=== PATIENT | male | born 1995 | race Caucasian/White ===

== ENCOUNTER 2022-01-29 11:26 | Outpatient (REF) | payer OTHER, SELFPAY ==
[2022-01-29 13:49] LABS: MANUAL DIFF FLAG NO
[2022-01-29 13:55] LABS: Basophils Absolute Auto 0.1 X10*3/uL (0.0-0.2); Basophils Percent Auto 1.2 % (0-2); Eosinophils Absolute Auto 0.2 X10*3/uL (0.0-0.4); Eosinophils Percent Auto 2.2 % (0-4); Hematocrit 46.4 % (42.0-52.0); Hemoglobin 15.9 g/dl (14.0-18.0); Imm Gran Abs Auto 0.11 X10*3/uL (0.00-0.03); Imm Gran Pct Auto 1.6 % (0.0-0.4); Lymphocytes Absolute Auto 2.6 X10*3/uL (1.2-4.9); Lymphocytes Percent Auto 37.6 % (20-40); Mean Corpuscular HGB Conc 34.3 g/dl (31.0-36.0); Mean Corpuscular Hemoglobin 28.3 pg (27.0-33.0); Mean Corpuscular Volume 82.6 fL (80.0-98.0); Mean Platelet Volume 10.1 fL (9.4-12.4); Monocytes Absolute Auto 0.9 X10*3/uL (0.1-1.2); Monocytes Percent Auto 12.8 % (2-11); Neutrophils Percent Auto 44.6 % (45-73); Platelet Count 228 X10*3/uL (160-400); Red Blood Count 5.62 X10*6/uL (4.60-5.80); Red Cell Distribution Width 12.6 % (11.0-16.0); White Blood Count 6.8 X10*3/uL (4.8-10.8)
[2022-01-29 14:10] LABS: Alanine Aminotransferase 56 U/L (0-40); Albumin Level 4.4 g/dL (3.5-5.0); Alkaline Phosphatase 83 U/L (39-117); Anion Gap 13 (12-20); Aspartate Amino Transferase 36 U/L (5-37); Bilirubin Total < 0.2 mg/dL (0.0-1.0); Blood Urea Nitrogen 17 mg/dL (9-16); Calcium 9.8 mg/dL (8.4-10.2); Carbon Dioxide 25 mmol/L (22-29); Chloride 103 mmol/L (96-108); Cholesterol 233 mg/dL; Estimated Glomerular Filt Rate > 60; Glucose Fasting 119 mg/dL (60-99); HDL Cholesterol 45 mg/dL; LDL Cholesterol Calculated 138 mg/dl; Potassium 4.3 mmol/L (3.3-5.1); Sodium 137 mmol/L (135-145); Total Protein 7.1 g/dL (6.5-8.0); Triglycerides 251 mg/dL
[2022-01-29 14:29] LABS: TSH reflex Free T4 1.42 uIU/mL (0.32-4.0)
== END 2022-01-29 11:27 | disposition home or self-care (01) ==
LOC: HO.HMGCLDS 11:26
PROVIDERS: PCP Nurse Practitioner Family; Visit Provider Nurse Practitioner Family
DX: Z00.00 Encounter for general adult medical examination without abnormal findings (principal)
CPT/HCPCS: 36415; 80053; 80061; 84443; 85025

== ENCOUNTER 2022-02-05 09:08 | Outpatient (REF) | payer OTHER, SELFPAY ==
[2022-02-05 12:58] LABS: C Reactive Protein 0.15 mg/dL (< or = 0.50); Lipase 20 U/L (8-78)
[2022-02-05 13:54] LABS: Folate 19.1 ng/mL (> or = 4.0); Vitamin B12 965 pg/mL (200-900)
[2022-02-07 12:37] LABS: Transglutaminase Ab IgG <1.0 U/mL; Transglutaminase IgA <1.0 U/mL
[2022-02-08 10:05] LABS: H Pylori Breath Test Negative (Negative)
[2022-02-10 12:21] LABS: Vitamin D 25-OH, D2 <4 ng/mL; Vitamin D 25-OH, D3 23 ng/mL; Vitamin D 25-OH, Total 23 ng/mL (30-100)
== END 2022-02-05 09:09 | disposition home or self-care (01) ==
LOC: HO.LAB 09:08
PROVIDERS: PCP Nurse Practitioner Family; Referring Provider Nurse Practitioner Family; Visit Provider Nurse Practitioner Family
DX: R10.9 Unspecified abdominal pain (principal); K58.9 Irritable bowel syndrome, unspecified; K59.1 Functional diarrhea; R14.0 Abdominal distension (gaseous); K21.9 Gastro-esophageal reflux disease without esophagitis; E55.9 Vitamin D deficiency, unspecified
CPT/HCPCS: 36415; 82306; 82607; 82746; 83013; 83690; 86140; 86364; 99202

== ENCOUNTER 2022-02-26 09:27 | Outpatient (REF) | payer OTHER, SELFPAY ==
--- NOTE | ~2022-02-26 | US_ITS ---
EXAMINATION: US ABDOMEN COMPLETE CLINICAL INFORMATION: Diarrhea, unspecified, bloating and pain. COMPARISON: None TECHNIQUE: Real-time imaging of the abdominal viscera. FINDINGS: PANCREAS: Normal. ABDOMINAL AORTA: The proximal, mid, and distal segments are normal in caliber. INFERIOR VENA CAVA: Visualized portions are normal. LIVER: The liver is enlarged measuring 18.6 cm in length. The liver contour is normal. There is increased liver echogenicity. No focal hepatic lesion. There is no intrahepatic biliary duct dilatation seen. GALLBLADDER: Normal. The gallbladder is physiologically distended without evidence of stones, sludge, polyps, wall thickening or pericholecystic fluid. COMMON BILE DUCT: Normal in caliber measuring 0.6 cm in diameter. RIGHT KIDNEY: Normal. No hydronephrosis. No renal calculi or focal parenchymal lesions. The kidney measures 10.3 cm in maximum dimension. LEFT KIDNEY: Normal. No hydronephrosis. No renal calculi or focal parenchymal lesions. The kidney measures 12.1 cm in maximum dimension. SPLEEN: Normal. The spleen measures 10 cm in maximum dimension. FREE FLUID: None. US/US abdomen complete IMPRESSION: Mildly enlarged liver with increased echogenicity. The rest of the abdominal ultrasound is unremarkable.
== END 2022-02-26 09:28 | disposition home or self-care (01) ==
LOC: HO.US 09:27
PROVIDERS: Visit Provider Nurse Practitioner Family
DX: R19.7 Diarrhea, unspecified (principal); R14.0 Abdominal distension (gaseous)
CPT/HCPCS: 76700

== ENCOUNTER 2023-06-04 14:10 | Outpatient (AMB) | payer OTHER, SELFPAY ==
[2023-06-04 14:16] VITALS: BP 110/74; PULSE 79; O2SAT 95; BMI 41.5
--- NOTE | 2023-06-04 14:16 | MHC.PC.OV ---
Vital Signs 06/04/23 14:16 Height 5 ft 10 in Weight 289 lb 2 oz BMI 41.5 BP 110/74 Blood Pressure Location Lt brachial Position Sitting Pulse 79 Pulse Source Pulse Oximeter Pulse Oximetry (%) 95 Oxygen Delivery Method Room Air Intake Visit Reasons: PE Allergies No Known Allergies Allergy (Verified 06/04/23 14:21) Medication List - Last Reconciled 06/04/23 by MARLENE Barron-MAYA colesevelam (WelChol) 1,250 mg (2 x 625 mg) PO BID 30 days divalproex 250 mg PO DAILY ketoconazole 2% 1 appl topical 3XW 60 days loperamide 2 mg PO QID PRN 30 days risperidone 3 mg PO BEDTIME topiramate 100 mg PO DAILY Tobacco use date assessed: 06/04/23 Dental Screening Dental Screen Date: 06/04/23 Did you have a dental visit in the last 12 months?: Yes Did you have a dental problem in the last 6 months where you did not have access to dental care?: No Was dental information given to patient?: Patient has dentist HPI PE HPI Details Pt is here for a PE. Will order labs. Pt has a hx of right ankle fracture approximately 1.5 years ago. He reports lateral ankle discomfort intermittently. Will order xr. Pt also reports itching of his anus. He is wearing briefs due to random incontinence of stool, though ? not wiping fully after a BM. Reenforced the importance of cleanliness after having a bowel movement. [facility] Medical History (Updated 06/04/23 @ 14:39 by BROOKLYNN Barron) Bipolar 1 disorder H/O seborrheic dermatitis Surgical History History of surgery on arm Social History Housing: House Patient Tobacco Use Status: Never used Tobacco e-Cigarette/Vaping Use: Currently Using service: No Current occupational status: employed Current occupation: [employer] Current occupational exposures/hazards: Yes Cognitive needs: No Hearing needs: No Vision needs: No Questionnaire Thrive Questionnaire Date Thrive assessed: 11/07/21 DANI-7 AMB Questionnaire DANI-7 Date DANI - 7 assessed: 11/07/21 Source: Developed by Drs. Ricco Shea, Mira Cruz, Ezio Robledo and colleagues, with an educational piedad from [employer]. Review of Systems Const Denies chills and Denies fever(s) Eyes Denies blurry vision ENT Denies vertigo, Denies dizziness and Denies sore throat Card Denies chest pain at rest, Denies chest pain with activity, Denies diaphoresis, Denies dyspnea and Denies dyspnea on exertion Resp Denies cough, Denies dyspnea, Denies dyspnea on exertion and Denies wheezing GI Denies abdominal pain, Denies melena, Denies hematochezia, Denies constipation, Denies diarrhea and Denies loose stools Denies hematuria Musc Denies numbness and Denies tingling Skin/Breast Denies lesions Neuro Denies vertigo, Denies dizziness, Denies numbness and Denies tingling Psych Denies anxiety, Denies depression, Denies homicidal ideation, Denies suicidal ideation and Denies other (substance abuse) Aller/Immun Denies wheezing Physical exam (Primary Care) Vital Signs: Last Vital Signs Pulse 79 06/04/23 14:16 BP 110/74 06/04/23 14:16 Pulse Ox 95 06/04/23 14:16 Oxygen Delivery Method Room Air 06/04/23 14:16 BMI result Body Mass Index 41.5 Tobacco/Smoking Status: Tobacco use Status Tobacco use date assessed 06/04/23 06/04/23 14:25 Patient Tobacco Use Status Never used Tobacco 06/04/23 14:25 e-Cigarette/Vaping Use Currently Using 06/04/23 14:25 Thrive Assessment: Date of Thrive Assessment Date Thrive assessed 11/07/21 06/04/23 14:25 Const General: cooperative Nutritional Appearance: obese morbidly obese Orientation/consciousness: patient oriented x3 HENMT Head: Yes normal to inspection, Yes normocephalic and Yes atraumatic Ears: TM's normal bilaterally Eyes General: appearance normal, both eyes and all related structures Alignment and Position: alignment normal and position normal Neck Neck: Yes normal visual inspection and Yes no lymphadenopathy Thyroid: Thyroid normal Resp Effort & Inspection: normal respiratory effort Auscultation: clear to auscultation bilaterally Cardio Rate: regular rate Rhythm: regular rhythm Heart sounds: S1 normal heart sound present, S2 normal heart sound present and no murmurs GI Palpation (GI): Soft to palpation and nontender Auscultation: normal bowel sounds Rectal Exam - Male: No External hemorrhoid(s) present Male General Exam: Yes normal external exam Penis: normal penis Scrotum: scrotum normal, testes descended bilaterally and no inguinal hernias Testes: no testicular mass Skin Rashes: no rashes Neuro General: patient oriented x3, moves all extremities, no focal motor deficits and deep tendon reflexes 2+ bilaterally Romberg Test: Negative Extrem Other: with inversion of right foot tenderness noted to lateral maleolus Psych Appearance: grossly normal Mental Status: mental status grossly normal Speech and movement: Normal speech and movement present Affect: normal affect Attitude: cooperative Thought process: Normal thought process present Thought content: Normal thought content present Insight: Good insight present (Psych) Judgement: Good judgement present (Psych) Assessment and Plan Assessment & Plan (1) Physical exam: Code(s): Z00.00 - Encounter for general adult medical examination without abnormal findings Plan: Labs ordered (2) Closed right ankle fracture: Code(s): S82.891A - Other fracture of right lower leg, initial encounter for closed fracture Plan: XR ordered Plan The patient agreed to the use of a biomedical equipment specialist for this encounter. Scribed for BROOKLYNN Salazar by Maryjane Chavarria biomedical equipment specialist, on 06/04/2023 at 14:35 EST. Orders: Orders Comprehensive [place]. Panel Fast Today Z00.00 - Encounter for general adult medical examination without abnormal findings Lipid Panel Today Z00.00 - Encounter for general adult medical examination without abnormal findings TSH reflex Free T4 Today Z00.00 - Encounter for general adult medical examination without abnormal findings Complete Blood Count Auto Diff Today Z00.00 - Encounter for general adult medical examination without abnormal findings UA CC w/rflx Micro + Cult Today Z00.00 - Encounter for general adult medical examination without abnormal findings XR ankle RT 2V Today S82.891A - Other fracture of right lower leg, initial encounter for closed fracture AMB EKG-In Office Today Z00.00 - Encounter for general adult medical examination without abnormal findings Coding Level of Care Code Est Pt Prev Care 18-39y(36116) Diagnoses Physical exam Z00.00 Closed right ankle fracture S82.891A
== END 2023-06-04 16:17 | disposition home or self-care (01) ==
PROVIDERS: Visit Provider Nurse Practitioner Family
DX: Z00.00 Encounter for general adult medical examination without abnormal findings (principal); S82.891A Other fracture of right lower leg, initial encounter for closed fracture
CPT/HCPCS: 99395

== ENCOUNTER 2023-06-04 15:09 | Outpatient (REF) | payer OTHER, SELFPAY ==
--- NOTE | ~2023-06-04 | XR_ITS ---
EXAMINATION: XR ANKLE, RIGHT CLINICAL INFORMATION: Other fracture right lower leg. COMPARISON: None available. TECHNIQUE: AP, lateral, and mortise views of the right ankle. FINDINGS: No fracture. Alignment is anatomic. No erosions. Joint spaces are maintained. Soft tissues are normal. The talar dome and ankle mortise are intact. XR/XR ankle RT min 3V IMPRESSION: No acute fracture or subluxation of the right ankle
== END 2023-06-04 15:10 | disposition home or self-care (01) ==
LOC: HO.HMGCX 15:09
PROVIDERS: PCP Nurse Practitioner Family; Visit Provider Nurse Practitioner Family
DX: S82.891A Other fracture of right lower leg, initial encounter for closed fracture (principal); X58.XXXA Exposure to other specified factors, initial encounter; Y93.9 Activity, unspecified; Y92.9 Unspecified place or not applicable; Y99.9 Unspecified external cause status
CPT/HCPCS: 73610

== ENCOUNTER 2024-01-22 09:49 | Outpatient (AMB) | payer OTHER, SELFPAY ==
[2024-01-22 09:50] VITALS: BP 130/100; PULSE 79; TEMP 36.2; O2SAT 95; BMI 41.5
--- NOTE | 2024-01-22 09:50 | AM.OFFWIN_ITS ---
Intake Vital Signs 01/22/24 09:50 Height 5 ft 10 in Weight 289 lb BMI 41.5 BP 130/100 H Blood Pressure Location Lt brachial Position Sitting Pulse 79 Pulse Source Pulse Oximeter Temp 97.1 F Temp Source Temporal Artery Scan Pulse Oximetry (%) 95 Oxygen Delivery Method Room Air Intake Visit Reasons: EP Lft knee pain cold to touch (lobby) Intake Note: pt is here today for lft knee pain cold to touch started 6 weeks ago Patient Tobacco Use Status: Never used Tobacco Allergies No Known Allergies Allergy (Verified 01/22/24 10:03) Do you need a note to return to daycare/school/sports/work: No HPI HPI Comments History of Present Illness Details 28-year-old male brought in by an attend ant complaining of left-sided knee pain for 6 weeks. The patient was seen in the emergency department the told him to get a compression sleeve. Apparently also had an x-ray that was negative. The patient is mostly complaining about ear anterior knee pain when he has been up and walking. [facility] Medical History (Updated 01/22/24 @ 10:27 by MERCEDES Gaffney) H/O seborrheic dermatitis Bipolar 1 disorder Surgical History History of surgery on arm Social History (Reviewed 07/07/22 @ 17:54 by Wyatt Conley [facility] Housing: House Patient Tobacco Use Status: Never used Tobacco e-Cigarette/Vaping Use: Currently Using service: No Current occupational status: employed Current occupation: [employer] Current occupational exposures/hazards: Yes Cognitive needs: No Hearing needs: No Vision needs: No Review of Systems Const All systems reviewed & are unremarkable except as noted in HPI and below Physical Exam Vital Signs: Last Vital Signs Temp 97.1 F 01/22/24 09:50 Pulse 79 01/22/24 09:50 BP 130/100 H 01/22/24 09:50 Pulse Ox 95 01/22/24 09:50 Oxygen Delivery Method Room Air 01/22/24 09:50 BMI result Body Mass Index 41.5 Const General: healthy appearing and no acute distress Extrem General: Yes normal to inspection and Yes full ROM Left lower extremity: knee (MCL LCL and ACL intact. No joint line tenderness) Details: normal to inspection, tenderness Location: of the patella and of the infrapatellar area and knee ligament exam normal Assessment & Plan Assessment & Plan (1) Left anterior knee pain: Code(s): M25.562 - Pain in left knee Plan: I gave the patient a patellar stabilizing knee brace. Advised that he do gentle ambulation several times a day. Avoid kneeling and follow up with his PCP Plan See plan Coding Level of Care Code Est Pt Level 3 (19401) Diagnoses Left anterior knee pain M25.562
== END 2024-01-22 16:11 | disposition home or self-care (01) ==
PROVIDERS: PCP Nurse Practitioner Family; Visit Provider Physician Assistant Medical
DX: M25.562 Pain in left knee (principal)
CPT/HCPCS: 99213

== ENCOUNTER 2024-03-31 12:53 | Outpatient (AMB) | payer OTHER, SELFPAY ==
--- NOTE | 2024-03-31 12:54 | A.OFFPC_ITS ---
Vital Signs 03/31/24 12:57 Height 5 ft 10 in Weight 297 lb BMI 42.6 BP 108/74 Blood Pressure Location Lt brachial Position Sitting Pulse 97 Pulse Source Pulse Oximeter Pulse Oximetry (%) 97 Oxygen Delivery Method Room Air Intake Visit Reasons: ED f/u-cardiology referral Intake Note: pt is here for ED f/u and cardiology referral Allergies No Known Allergies Allergy (Verified 03/31/24 13:14) Medication List - Last Reconciled 03/31/24 by MARLENE Rolon divalproex 250 mg PO DAILY risperidone 3 mg PO BEDTIME topiramate 100 mg PO DAILY Tobacco use date assessed: 03/31/24 Dental Screening Dental Screen Date: 03/31/24 Did you have a dental visit in the last 12 months?: Yes Did you have a dental problem in the last 6 months where you did not have access to dental care?: No Was dental information given to patient?: Patient has dentist HPI HPI Comments History of Present Illness Details Patient is a 28-year-old male 1 week for the 1st time in for a ED follow-up. He was seen at [facility] Emergency Department for left knee pain, chest discomfort and feeling scared due to a a negative interaction over the Internet. At that time he was being treated for viral bronchitis. Patient chest pain was attributed to anxiety, and GERD because the nonradiating chest pain occurred after eating a slice of pizza that got worse when he was lying down. Left knee pain is chronic. The workup also consisted of EKG troponin as well as chest x-ray. All came back normal. Patient has established psychiatrist Yamila Daniels. Patient has primary complaint today of left knee pain. Denies tingling or numbness. Patient is able to ambulate in the affected extremity. He utilizes ibuprofen p.r.n. with good effect. Will refer to physical therapy. Patient also reports that he feels that in the mornings his heart is racing. States that he does not have any symptoms today. Denies tachycardia, denies chest pain, denies shortness of breath. Will order 3 day Holter monitor. [facility] Medical History (Updated 03/31/24 @ 13:34 by MARLENE Rolon) H/O seborrheic dermatitis Bipolar 1 disorder Surgical History History of surgery on arm Social History Housing: House Patient Tobacco Use Status: Never used Tobacco e-Cigarette/Vaping Use: Currently Using service: No Current occupational status: employed Current occupation: [employer] Current occupational exposures/hazards: Yes Cognitive needs: No Hearing needs: No Vision needs: No Questionnaire PHQ-9 Over the last 2 weeks, how often have you been bothered by any of the following problems? 1. Little interest or pleasure in doing things: more than half the days 2. Feeling down, depressed, or hopeless: several days 3. Trouble falling or staying asleep, or sleeping too much: several days 4. Feeling tired or having little energy: several days 5. Poor appetite or overeating: more than half the days 6. Feeling bad about yourself - or that you are a failure or have let yourself or your family down: not at all 7. Trouble concentrating on things, such as reading the newspaper or watching television: not at all 8. Moving or speaking so slowly that other people could have noticed. Or the opposite - being so fidgety or restless that you have been moving around a lot more than usual: more than half the days 9. Thoughts that you would be better off or of hurting yourself in some way: not at all Total score: 9 Depression Screening Interpretation: Positive Depression Screening Follow-up: In treatment Depression Screening Done: Yes 27386 - PHQ-9 Billing: Yes Source: Developed by Drs. Ricco Shea, Mira Cruz, Ezio Robledo and colleagues, with an educational piedad from [employer] Thrive Questionnaire Date Thrive assessed: 11/07/21 AUDIT C Alcohol Use Questionnaire (AUDIT-C) 1. How often do you have a drink containing alcohol?: 2-4 times a month 2. How many drinks containing alcohol do you have on a typical day when you are drinking?: 1 or 2 3. How often do you have six or more drinks on one occasion?: Monthly Total Score: 4 Score Reviewed/Action Taken: Yes DANI-7 AMB Questionnaire DANI-7 Date DANI - 7 assessed: 03/31/24 Feeling nervous, anxious, or on edge: 3 = Nearly every day Not being able to stop or control worryin = Not at all Worrying too much about different things: 0 = Not at all Trouble relaxin = Nearly every day Being so restless that it is hard to sit still: 1 = Several days Becoming easily annoyed or irritable: 1 = Several days Feeling afraid as if something awful might happen: 0 = Not at all Total DANI-7 score (0-4 normal; 5-9 mild; 10-14 moderate; 15-21 severe): 8 Source: Developed by Drs. Ricco Shea, Mira Cruz, Ezio Robledo and colleagues, with an educational piedad from [employer] ([employer]). DANI-7 Assessment Billing DANI-7 Assessment Tool: DANI-7 Assessment 72350 (In treatment has establish psychiatrist) Review of Systems Const All systems reviewed & are unremarkable except as noted in HPI and below Physical exam (Primary Care) Vital Signs: Last Vital Signs Pulse 97 03/31/24 12:57 BP 108/74 03/31/24 12:57 Pulse Ox 97 03/31/24 12:57 Oxygen Delivery Method Room Air 03/31/24 12:57 Care Plan Goal for BP management: Vital signs stable. BMI result Body Mass Index 42.6 Tobacco/Smoking Status: Tobacco use Status Tobacco use date assessed 03/31/24 03/31/24 13:01 Patient Tobacco Use Status Never used Tobacco 03/31/24 13:01 e-Cigarette/Vaping Use Currently Using 03/31/24 13:01 PHQ-9: PHQ-9 Score PHQ-9: Total score 14 03/31/24 13:08 Depression Screening Interpretation: Positive Depression Screening Follow-up: In treatment Thrive Assessment: Date of Thrive Assessment Date Thrive assessed 11/07/21 03/31/24 13:01 Const Other: Appearance: Alert.? Oriented X3.? No acute distress.? Head: Normocephalic. CVS: Normal heart rate and rhythm.? Pulses normal.?S1 and S2. Respiratory: No respiratory distress.? Breath sounds normal.? Skin: Skin warm and dry.? Normal skin color.? Normal skin turgor.? Extremities: No lower extremity edema.? No calf ttp. 5/5 strength to bilateral upper and lower extremities. Full ROM. +crepitus. Back: No midline tenderness, no C-spine tenderness, full range of motion, no CVA tenderness bilaterally Neuro: Oriented X 3.? No motor deficit.? No sensory deficit. CN 2-12 intact Assessment and Plan Assessment & Plan (1) Left anterior knee pain: Comment: Acute on chronic. Patient utilizing ibuprofen with good effect. Patient also utilizing knee brace. Will refer to physical therapy. MRI if no improvement Code(s): M25.562 - Pain in left knee (2) Intermittent palpitations: Comment: Patient reports intermittent palpitations in the morning. Denies shortness of breath chest pain. Denies dizziness or numbness. Will order Holter monitor. Code(s): R00.2 - Palpitations Plan: Patient has been educated on signs of worsening symptoms when to report back to the office or when to present to the ED Orders: Orders ECG 3 day holter monitor Today R00.2 - Palpitations PT Evaluation and Treatment Today M25.562 - Pain in left knee Medications: Refilled colesevelam (WelChol) 1,250 mg (2 x 625 mg) PO BID 360 tabs 1RF Coding Level of Care Code Est Pt Level 3 (59956) Diagnoses Left anterior knee pain M25.562 Intermittent palpitations R00.2 Additional Codes DANI-7 Assessment Billing - DANI-7 Assessment Tool: DANI-7 Assessment 65833 ([id number]) Time Spent (min) 26
[2024-03-31 12:57] VITALS: BP 108/74; PULSE 97; O2SAT 97; BMI 42.6
== END 2024-03-31 16:47 | disposition home or self-care (01) ==
PROVIDERS: PCP Nurse Practitioner Family; Visit Provider Nurse Practitioner Primary Care
DX: M25.562 Pain in left knee (principal); R00.2 Palpitations
CPT/HCPCS: 99213

== ENCOUNTER → 2024-04-21 12:52 | Outpatient (REF) | payer OTHER, SELFPAY ==
--- NOTE | 2024-04-21 12:54 | HM_ITS ---
* Total monitoring time 3 days. * Underlying rhythm is sinus with an average rate of 85/Min. * Rare supraventricular ectopy. * Rare ventricular ectopy. * No significant pauses or AV blocks. * No patient markers. * No events in patient diary. MTDD
== END ==
LOC: HO.CARD 12:52
PROVIDERS: PCP Nurse Practitioner Family; Visit Provider Nurse Practitioner Primary Care
DX: R00.2 Palpitations (principal)
CPT/HCPCS: 93242

== ENCOUNTER → 2024-04-21 12:54 | Outpatient (BNV) | payer OTHER, SELFPAY | PROVIDERS: PCP Nurse Practitioner Family; Visit Provider Internal Medicine | DX: I47.10 Supraventricular tachycardia, unspecified (principal) | CPT/HCPCS: 93244 ==

== ENCOUNTER 2024-06-01 10:01 | Outpatient (AMB) | payer OTHER, SELFPAY ==
--- NOTE | 2024-06-01 10:02 | MHC.PC.OV ---
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 He c/o bilat knee pain and right posterior head pain. Head CT was negative for hemorrhage or mass effect, EKG was WNL. Pt was given IV fluids. Pt was seen in the ER on 05/27 after hitting his head and falling during a basketball game. He had a 2cm lip laceration that was repaired. There were no acute findings on head and neck CT and right knee XR. Pt was then seen in the ER on 05/30 after falling on stairs due to dizziness. He reported pain in his right neck, lower back, and right knee. XRs of right knee and back were negative for fractures. CT of the neck was negative for fracture. EKG was unremarkable. Pt reports ongoing dizziness and headache. Explained to pt that he likely has a concussion which will cause these symptoms. Recommended pushing fluids and taking tylenol as needed (will send). Denies blurred vision, photophobia, sonophobia, and N/V. [facility] Medical History H/O seborrheic dermatitis Bipolar 1 disorder Surgical History History of surgery on arm Social History Housing: House Patient Tobacco Use Status: Never used Tobacco e-Cigarette/Vaping Use: Currently Using service: No Current occupational status: employed Current occupation: [employer] Current occupational exposures/hazards: Yes Cognitive needs: No Hearing needs: No Vision needs: No Questionnaire Thrive Questionnaire Date Thrive assessed: 06/01/24 I am a: Patient What is your living situation today?: I have a steady place to live Within the past 12 months, did the food you bought not last and you didn't have the money to get more?: Never true Within the past 12 months, did you worry whether your food would run out before you got money to buy more?: Never true Do you have trouble paying for medicines?: No Do you have trouble getting transportation to medical appointments?: No Do you have trouble paying your heating and electricity bill?: No Do you have trouble taking care of your child, family member or friend?: No Do you have trouble with day-to-day activities such as bathing, preparing meals, shopping, managing finances, etc.?: No Are you currently unemployed and looking for a job?: No Are you interested in more education?: No Please select the resources that you would like help with: None Currently or been in a relationship where the following occur: No concerns reported THRIVE Score: 0 DANI-7 AMB Questionnaire DANI-7 Date DANI - 7 assessed: 03/31/24 Source: Developed by Drs. Ricco Shea, Mira Cruz, Ezio Robledo and colleagues, with an educational piedad from [employer]. Review of Systems Const Reports as per HPI Physical exam (Primary Care) Vital Signs: Last Vital Signs Pulse 85 06/01/24 10:03 BP 130/82 06/01/24 10:03 Pulse Ox 95 06/01/24 10:03 Oxygen Delivery Method Room Air 06/01/24 10:03 BMI result Body Mass Index 42.9 Tobacco/Smoking Status: Tobacco use Status Tobacco use date assessed 03/31/24 06/01/24 10:04 Patient Tobacco Use Status Never used Tobacco 06/01/24 10:04 e-Cigarette/Vaping Use Currently Using 06/01/24 10:04 Thrive Assessment: Date of Thrive Assessment Date Thrive assessed 06/01/24 06/01/24 10:04 Currently or been in a relationship where the following occur: No concerns reported Const General: cooperative Nutritional Appearance: obese morbidly obese Orientation/consciousness: patient oriented x3 HENMT Other: upper lip is scabbed, healing, faint suture remain (dissolvable) Resp Effort & Inspection: normal respiratory effort Auscultation: clear to auscultation bilaterally Cardio Rate: regular rate Rhythm: regular rhythm Heart sounds: S1 normal heart sound present and S2 normal heart sound present Neuro Other: - romberg, heel to pérez intact, finger to thumb intact General: patient oriented x3 and CN's II-XI intact bilaterally Psych Appearance: grossly normal Mental Status: mental status grossly normal Speech and movement: Normal speech and movement present Affect: normal affect Attitude: cooperative Thought process: Normal thought process present Thought content: Normal thought content present Insight: Good insight present (Psych) Judgement: Good judgement present (Psych) Assessment and Plan Assessment & Plan (1) Fall: Code(s): W19.XXXA - Unspecified fall, initial encounter (2) Concussion: Code(s): S06.0XAA - Concussion with loss of consciousness status unknown, initial encounter Plan: push fluids, rest, tylenol for headache (3) Lip laceration: Code(s): S01.511A - Laceration without foreign body of lip, initial encounter Plan: no signs of infection, healing Plan The patient agreed to the use of a certified medical technician for this encounter. Scribed for BROOKLYNN Salazar by Maryjane Chavarria certified medical technician, on 06/01/2024 at 10:30 EST. Medications: New acetaminophen ER (Tylenol Arthritis Pain) 650 mg PO Q6H PRN 120 tabs 0RF pain 30 days Coding Level of Care Code Est Pt Level 4 (51606) Diagnoses Fall W19.XXXA Concussion S06.0XAA Lip laceration S01.511A
[2024-06-01 10:03] VITALS: BP 130/82; PULSE 85; O2SAT 95; BMI 42.9
== END 2024-06-01 12:03 | disposition home or self-care (01) ==
PROVIDERS: PCP Nurse Practitioner Family; Visit Provider Nurse Practitioner Family
DX: S06.0XAA Concussion with loss of consciousness status unknown, initial encounter (principal); S01.511A Laceration without foreign body of lip, initial encounter; W19.XXXA Unspecified fall, initial encounter
CPT/HCPCS: 99214

== ENCOUNTER 2024-06-22 13:00 | Outpatient (RCR) | payer OTHER, SELFPAY ==
--- NOTE | 2024-05-19 10:42 | MHC.PT.EP ---
[facility] [place] Office [place] Office [place] Office [address] Jeremy Pritchett [address] [facility] [phone] F: [phone] F: [phone] F: [phone] F: [phone] Physical Therapy Plan of Care Date of Evaluation: 05/19/24 Date of Surgery: Diagnosis: This is a 28 yo male presenting to skilled PT with a script for L knee pain. Assessment: This is a 28 yo male presenting to skilled PT with a script for L knee pain. Patient reporting that his pain has been ongoing for about 3 years when he was playing basketball and twisted his knee. His pain ranges from the knee to the hip. He states that his pain is cold at the thigh, knee is sharp and achy (patella). When he sits his pain is sharp and when he walks it is achy. Pain increases with walking, stairs, squatting. He wears a knee brace when out and about and uses ice/ibuprofen for pain management. He does endorse some locking and instability. Assessment reveals pain that ranges from up to a 9/10 at the worst. Patient demos decreased L knee ROM, strength of L LE, TTP at patella and impaired posture with forward head and rounded shoulders as well as impaired gait pattern as well as decreased balance. Based on functional limitations, impaired QOL and pain tolerance patient is a good candidate for skilled PT 2x/wk for 4wks. Frequency and Duration: The patient will be seen 2x/wk for 4wks Short Term Goals: (in 2 weeks) Patient will improve knee AROM by at least 10 degs without assist Patient will demo good undestanding and performance of quad set in multiple different planes without cues from PT Patient will be I in HEP Booster Plant Operator Goals: (in 4 weeks) Patient will report 75% improvement in balance and strength of LLE as evidenced by reports no of falls or buckling in LE Patient will improve LEFs by 10 points Patient will demo WFL AROM of knee and ankle Patient will demo proper squat and lift techniques without increase in pain Treatment Plan: Modalities to reduce pain, spasms and effusion. Manual therapy to restore motion and function. Therapeutic exercise to improve strength and flexibility. Neuromuscular re-education for posture and balance. Therapeutic activities to return to functional activities of daily living. Electronically signed by: Komal Contreras PT Please sign and return to therapist. Thank you for your referral.
--- NOTE | 2024-07-22 07:31 | MHC.PT.DC ---
[facility] [place] Office [place] Office [place] Office [address] Jeremy Pritchett [address] [phone] F: [phone] F: [phone] F: [phone] F: [phone] Physical Therapy Discharge Report Diagnosis: This is a 28 yo male presenting to skilled PT with a script for L knee pain. Date of Surgery: Date of Evaluation: 05/19/24 Date of Discharge: 07/22/24 Treatments to Date: 5 Cancellations to Date: 0 No Shows to Date: 0 Discharge Status: Recommend MD Follow-up Visit Non-compliance Discharge Summary: Patient still reporting pain. Limited progression is tolerated by him. I did encourage him to follow up with his PCP. He has one more scheduled appointment and then I will be DCing back to PCP. He has questions about going to the [facility], I did tell him that he should know is knee and body's limits and needs to make that decision himself. He also had poor attendance and proceeded to no show to his remaining visit. DC to HEP Electronically signed by: Komal Contreras PT Please sign and return to therapist. Thank you for your referral.
--- NOTE | 2024-08-02 12:33 | MHC.PT.DC ---
[facility] [place] [facility] [place] Office [place] Office [address] Jeremy Pritchett [address] [phone] F: [phone] F: [phone] F: [phone] F: [phone] Physical Therapy Discharge Report Diagnosis: This is a 28 yo male presenting to skilled PT with a script for L knee pain. Date of Surgery: Date of Evaluation: 05/19/24 Date of Discharge: 07/22/24 Treatments to Date: 5 Cancellations to Date: 0 No Shows to Date: 0 Discharge Status: Recommend MD Follow-up Visit Non-compliance Discharge Summary: Patient still reporting pain. Limited progression is tolerated by him. I did encourage him to follow up with his PCP. He has one more scheduled appointment and then I will be DCing back to PCP. He has questions about going to [facility], I did tell him that he should know is knee and body's limits and needs to make that decision himself. He also had poor attendance and proceeded to no show to his remaining visit. DC to [facility]P Electronically signed by: Komal Contreras PT Please sign and return to therapist. Thank you for your referral.
== END 2024-07-22 07:32 | disposition home or self-care (01) ==
LOC: HO.PTCHIC 13:00
PROVIDERS: PCP Nurse Practitioner Family; Visit Provider Nurse Practitioner Primary Care
DX: M25.562 Pain in left knee (principal)
CPT/HCPCS: 97110; 97161

== ENCOUNTER 2024-06-23 10:53 | Outpatient (AMB) | payer OTHER, SELFPAY ==
[2024-06-23 10:55] VITALS: BP 130/80; PULSE 72; O2SAT 97; BMI 42.8
--- NOTE | 2024-06-23 10:55 | A.OFFPC_ITS ---
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 Will order labs. Pt was seen in the ER on 06/22 c/o right calf pain after walking 7 miles. This was thought to be due to overuse and was unlikely a DVT. Pt's CPK level was 360, unlikely rhabdo. He was given IV fluids for dehydration. Will recheck CPK. There is ? of sleep apnea by staff member. Will refer to sleep medicine for sleep study. Pt sees a psychiatrist. [facility] Medical History H/O seborrheic dermatitis Bipolar 1 disorder Surgical History History of surgery on arm Social History Housing: House Patient Tobacco Use Status: Never used Tobacco e-Cigarette/Vaping Use: Currently Using service: No Current occupational status: employed Current occupation: [employer] Current occupational exposures/hazards: Yes Cognitive needs: No Hearing needs: No Vision needs: No Questionnaire PHQ-9 Over the last 2 weeks, how often have you been bothered by any of the following problems? 1. Little interest or pleasure in doing things: not at all 2. Feeling down, depressed, or hopeless: not at all 3. Trouble falling or staying asleep, or sleeping too much: several days 4. Feeling tired or having little energy: nearly every day 5. Poor appetite or overeating: more than half the days 6. Feeling bad about yourself - or that you are a failure or have let yourself or your family down: not at all 7. Trouble concentrating on things, such as reading the newspaper or watching television: not at all 8. Moving or speaking so slowly that other people could have noticed. Or the opposite - being so fidgety or restless that you have been moving around a lot more than usual: not at all 9. Thoughts that you would be better off or of hurting yourself in some way: not at all Total score: 6 Depression Screening Interpretation: Negative Depression Screening Done: Yes 02855 - PHQ-9 Billing: Yes Source: Developed by Drs. Ricco Shea, Mira Cruz, Ezio Robledo and colleagues, with an educational piedad from [employer]. Thrive Questionnaire Date Thrive assessed: 06/23/24 I am a: Patient What is your living situation today?: I have a steady place to live Within the past 12 months, did the food you bought not last and you didn't have the money to get more?: Sometimes True Within the past 12 months, did you worry whether your food would run out before you got money to buy more?: Sometimes True Do you have trouble paying for medicines?: No Do you have trouble getting transportation to medical appointments?: No Do you have trouble paying your heating and electricity bill?: No Do you have trouble taking care of your child, family member or friend?: No Do you have trouble with day-to-day activities such as bathing, preparing meals, shopping, managing finances, etc.?: No Are you currently unemployed and looking for a job?: No Are you interested in more education?: Yes Please select the resources that you would like help with: None Currently or been in a relationship where the following occur: No concerns reported THRIVE Score: 2 AUDIT C Alcohol Use Questionnaire (AUDIT-C) 1. How often do you have a drink containing alcohol?: 2-4 times a month 2. How many drinks containing alcohol do you have on a typical day when you are drinking?: 1 or 2 3. How often do you have six or more drinks on one occasion?: Less than monthly Total Score: 3 Score Reviewed/Action Taken: Yes DANI-7 AMB Questionnaire DANI-7 Date DANI - 7 assessed: 06/23/24 Feeling nervous, anxious, or on edge: 1 = Several days Not being able to stop or control worryin = Not at all Worrying too much about different things: 1 = Several days Trouble relaxin = More than half the days Being so restless that it is hard to sit still: 1 = Several days Becoming easily annoyed or irritable: 1 = Several days Feeling afraid as if something awful might happen: 0 = Not at all Total DANI-7 score (0-4 normal; 5-9 mild; 10-14 moderate; 15-21 severe): 6 Source: Developed by Drs. Ricco Shea, Mira Cruz, Ezio Robledo and colleagues, with an educational piedad from [employer]. DANI-7 Assessment Billing DANI-7 Assessment Tool: DANI-7 Assessment 55953 Review of Systems Const Denies chills and Denies fever(s) Eyes Denies blurry vision ENT Denies vertigo, Denies dizziness and Denies sore throat Card Denies chest pain at rest, Denies chest pain with activity, Denies diaphoresis, Denies dyspnea and Denies dyspnea on exertion Resp Denies cough, Denies dyspnea, Denies dyspnea on exertion and Denies wheezing GI Denies abdominal pain, Denies melena, Denies hematochezia, Denies constipation, Denies diarrhea and Denies loose stools Denies hematuria Musc Denies numbness and Denies tingling Skin/Breast Denies lesions Neuro Denies vertigo, Denies dizziness, Denies numbness and Denies tingling Psych Denies anxiety, Denies depression, Denies homicidal ideation, Denies suicidal ideation and Denies other (substance abuse) Aller/Immun Denies wheezing Physical exam (Primary Care) Vital Signs: Last Vital Signs Pulse 72 06/23/24 10:55 BP 130/80 06/23/24 10:55 Pulse Ox 97 06/23/24 10:55 BMI result Body Mass Index 42.8 Tobacco/Smoking Status: Tobacco use Status Tobacco use date assessed 03/31/24 06/23/24 10:57 Patient Tobacco Use Status Never used Tobacco 06/23/24 10:57 e-Cigarette/Vaping Use Currently Using 06/23/24 10:57 PHQ-9: PHQ-9 Score PHQ-9: Total score 6 06/23/24 11:17 Depression Screening Interpretation: Negative Thrive Assessment: Date of Thrive Assessment Date Thrive assessed 06/23/24 06/23/24 10:57 Currently or been in a relationship where the following occur: No concerns reported Const General: cooperative Nutritional Appearance: obese morbidly obese Orientation/consciousness: patient oriented x3 HENMT Other: cerumen noted bilat, right>left, after ear lavage TMs easily seen Head: Yes normal to inspection, Yes normocephalic and Yes atraumatic Eyes General: appearance normal, both eyes and all related structures Alignment and Position: alignment normal and position normal Neck Neck: Yes normal visual inspection, Yes no lymphadenopathy and Yes supple Resp Effort & Inspection: normal respiratory effort Auscultation: clear to auscultation bilaterally Cardio Rate: regular rate Rhythm: regular rhythm Heart sounds: S1 normal heart sound present, S2 normal heart sound present and no murmurs GI Palpation (GI): Soft to palpation and nontender Auscultation: normal bowel sounds Male General Exam: Yes normal external exam Penis: normal penis Scrotum: scrotum normal, testes descended bilaterally and no inguinal hernias Testes: no testicular mass Skin Rashes: no rashes Neuro General: patient oriented x3, moves all extremities, no focal motor deficits and deep tendon reflexes 2+ bilaterally Romberg Test: Negative Extrem Other: +1 patellar reflexes Psych Appearance: grossly normal Mental Status: mental status grossly normal Speech and movement: Normal speech and movement present Affect: normal affect Attitude: cooperative Thought process: Normal thought process present Thought content: Normal thought content present Insight: Good insight present (Psych) Judgement: Good judgement present (Psych) Office Procedures Cerumen Removal From which ear canal was the cerumen removed: bilateral Removal: irrigation Notes: patient tolerated procedure well, no complications and ear canal clear [id number] Irrigation/Lavage Assessment and Plan Assessment & Plan (1) Muscle pain: Code(s): M79.10 - Myalgia, unspecified site Plan: CPK ordered (2) Dehydration: Code(s): E86.0 - Dehydration Plan: CPK ordered (3) Encounter for routine adult physical exam with abnormal findings: Code(s): Z00.01 - Encounter for general adult medical examination with abnormal findings Plan: Labs ordered (4) Sleep apnea: Code(s): G47.30 - Sleep apnea, unspecified Plan: referred to sleep medicine (5) Cerumen impaction: Code(s): H61.20 - Impacted cerumen, unspecified ear Plan: clear after ear lavage Plan The patient agreed to the use of a medical office receptionist for this encounter. Scribed for BROOKLYNN Salazar by kurt Andres scribe, on 06/23/2024 at 11:15 EST. Orders: Orders Creatine Kinase Total Today E86.0 - Dehydration, M79.10 - Myalgia, unspecified site Complete Blood Count Auto Diff Today Z00.01 - Encounter for general adult medical examination with abnormal findings TSH reflex Free T4 Today Z00.01 - Encounter for general adult medical examination with abnormal findings Comprehensive [place]. Panel Fast Today Z00.01 - Encounter for general adult medical examination with abnormal findings UA CC w/rflx Micro + Cult Today Z00.01 - Encounter for general adult medical examination with abnormal findings Lipid Panel Today Z00.01 - Encounter for general adult medical examination with abnormal findings Referrals Sleep Medicine Referral G47.30 - Sleep apnea, unspecified Coding Level of Care Code Est Pt Prev Care 18-39y(02200) Diagnoses Muscle pain M79.10 Dehydration E86.0 Encounter for routine adult physical exam with abnormal findings Z00.01 Sleep apnea G47.30 Cerumen impaction H61.20 CPT Codes Office Procedure - CPT: [id number] Irrigation/Lavage ([id number]) Additional Codes DANI-7 Assessment Billing - DANI-7 Assessment Tool: DANI-7 Assessment 13398 ([id number])
== END 2024-06-23 11:54 | disposition home or self-care (01) ==
PROVIDERS: PCP Nurse Practitioner Family; Visit Provider Nurse Practitioner Family
DX: Z00.00 Encounter for general adult medical examination without abnormal findings (principal); M79.10 Myalgia, unspecified site; E86.0 Dehydration; G47.30 Sleep apnea, unspecified; H61.23 Impacted cerumen, bilateral
CPT/HCPCS: 69209; 99395

== ENCOUNTER 2024-08-03 09:43 | Outpatient (REF) | payer OTHER, SELFPAY ==
[2024-08-03 14:40] LABS: Adenovirus PCR Not Detected (Not Detect.); Bordetella parapertussis PCR Not Detected (Not Detect.); Bordetella pertussis PCR Not Detected (Not Detect.); Chlamydia pneumoniae PCR Not Detected (Not Detect.); Coronavirus 229E PCR Not Detected (Not Detect.); Coronavirus HKU1 PCR Not Detected (Not Detect.); Coronavirus NL63 PCR Not Detected (Not Detect.); Coronavirus OC43 PCR Not Detected (Not Detect.); Human metapneumovirus PCR Not Detected (Not Detect.); Influenza A PCR Not Detected (Not Detect.); Influenza B PCR Not Detected (Not Detect.); Mycoplasma pneumoniae PCR Not Detected (Not Detect.); Parainfluenza 1 PCR Not Detected (Not Detect.); Parainfluenza 2 PCR Not Detected (Not Detect.); Parainfluenza 3 PCR Not Detected (Not Detect.); Parainfluenza 4 PCR Not Detected (Not Detect.); RSV PCR Not Detected (Not Detect.); Rhino/Enterovirus PCR Detected (Not Detect.)
[2024-08-03 14:50] LABS: SARS-CoV-2 PCR Not Detected (Not Detect.)
== END 2024-08-03 09:44 | disposition home or self-care (01) ==
LOC: HO.LAB 09:43
PROVIDERS: Physician Assistant; PCP Nurse Practitioner Family
DX: J06.9 Acute upper respiratory infection, unspecified (principal); R51.9 Headache, unspecified; R07.89 Other chest pain; R05.9 Cough, unspecified
CPT/HCPCS: 87633; 99212

== ENCOUNTER 2024-08-03 09:43 | Outpatient (AMB) | payer OTHER, SELFPAY ==
--- NOTE | 2024-08-03 09:53 | AM.OFFWIN_ITS ---
Intake Vital Signs 08/03/24 09:57 Height 5 ft 10 in Weight 294 lb BMI 42.2 BP 110/70 Blood Pressure Location Lt brachial Position Sitting Pulse 93 Pulse Source Pulse Oximeter Temp 97.7 F Temp Source Oral Pulse Oximetry (%) 93 Oxygen Delivery Method Room Air Intake Visit Reasons: EP sore throat, cold symptoms Intake Note: Patient here for SOB, chest tightness, lower back pain, sinus congestion which has been going on for almost 2 weeks. Patient Tobacco Use Status: Never used Tobacco Allergies No Known Allergies Allergy (Verified 08/03/24 09:58) HPI HPI Comments History of Present Illness Details Patient is a 28-year-old male complaining of 10-12 days of a slight headache, head congestion, shortness of breath, chest tightness and a cough that is both dry and productive with yellow mucus. He denies any fevers, history of asthma or COPD he being a current smoker. He tells me he went to the emergency room on July 29 where he had some tests done but he is not quite sure what it they did but he does know they diagnosed him with bronchitis. The next day, he was feeling worse so he went to urgent care. He tells me they gave him an inhaler and prescribed him Tessalon Perles but he could not afford to [employer] this medication so he has just been using cough drops instead. He tells me he has been using the inhaler and it does relieve his shortness of breath for a little while. He tells me he lives in a intermediate and to people who live in the intermediate have been sick for awhile. One of them had COVID and the other person he is unsure of their diagnosis but he states that they do not wear masks and they walk around coughing all day. [facility] Medical History H/O seborrheic dermatitis Bipolar 1 disorder Surgical History History of surgery on arm Social History Housing: House Patient Tobacco Use Status: Never used Tobacco e-Cigarette/Vaping Use: Currently Using service: No Current occupational status: employed Current occupation: [employer] Current occupational exposures/hazards: Yes Cognitive needs: No Hearing needs: No Vision needs: No Review of Systems Const All systems reviewed & are unremarkable except as noted in HPI and below Physical Exam Vital Signs: Last Vital Signs Temp 97.7 F 08/03/24 09:57 Pulse 93 08/03/24 09:57 BP 110/70 08/03/24 09:57 Pulse Ox 93 08/03/24 09:57 Oxygen Delivery Method Room Air 08/03/24 09:57 BMI result Body Mass Index 42.2 Const General: cooperative, healthy appearing, comfortable and no acute distress Orientation/consciousness: patient oriented x3 Limitations: no limitations HEENT Head: Yes normal to inspection Ears: hearing grossly normal bilaterally, external ears normal and unable to visualize TM bilaterally (cerumen ) General nose exam: Normal external nose present, Normal nares present and No nasal discharge present Face and sinus: Yes normal facial exam and Yes sinus tenderness (frontal bilateral) Mouth: Normal oral and palatal mucosa present and moist mucous membranes Throat: Yes tonsils normal, Yes uvula midline and Yes posterior oropharynx abnor mal (Erythema) Eyes General: appearance normal, both eyes and all related structures Neck Neck: Yes normal visual inspection Resp Effort & Inspection: normal respiratory effort, able to speak in complete sentences, Actively coughing, no respiratory distress, not tachypneic, no tripod positioning and no use of accessory muscles Auscultation: diminished lung sounds diffuse Cardio Rate: regular rate Rhythm: regular rhythm Heart sounds: normal S1 and S2 Skin General skin exam: no rashes or lesions noted Neuro General: patient oriented x3 Extrem General: Yes normal to inspection and Yes no clubbing, cyanosis or edema Assessment & Plan Assessment & Plan (1) Lower respiratory infection (e.g., bronchitis, pneumonia, pneumonitis, pul monitis): Code(s): J22 - Unspecified acute lower respiratory infection Plan: Vital signs notable for oxygen saturation of 93%. We will repeat a chest x-ray as according to our records, the urgent care did one that showed nothing acute 4 days ago and patient is feeling worse. Recommended patient keep using albuterol inhaler as needed, cough drops and add Mucinex to his regimen twice a day. Sent respiratory pathogen panel. If that comes back negative, likely bacterial as it has been 12 days that the patient has been sick. I will hold off to send an antibiotic until the panel is resulted. Plan see above Orders: Orders XR chest 2V Today R05.9 - Cough, unspecified Resp Pathogen Panel [place] [facility] J06.9 - Acute upper respiratory infection, unspecified Coding Level of Care Code Est Pt Level 4 (10487) Diagnoses Lower respiratory infection (e.g., bronchitis, pneumonia, pneumonitis, pulmonitis) J22
[2024-08-03 09:57] VITALS: BP 110/70; PULSE 93; TEMP 36.5; O2SAT 93; BMI 42.2
== END 2024-08-03 10:41 | disposition home or self-care (01) ==
PROVIDERS: PCP Nurse Practitioner Family; Visit Provider Physician Assistant
DX: J22 Unspecified acute lower respiratory infection (principal)

== ENCOUNTER 2024-08-03 10:20 | Outpatient (REF) | payer OTHER, SELFPAY ==
--- NOTE | ~2024-08-03 | XR_ITS ---
EXAMINATION: XR CHEST CLINICAL INFORMATION: Cough. COMPARISON: None available. TECHNIQUE: 2 views of the chest were obtained (PA and lateral). FINDINGS: The patient is mildly rotated to the right. The lungs are adequately expanded. No evidence of focal consolidation, pleural effusion, pulmonary edema, or pneumothorax. The cardiomediastinal silhouette is within normal limits. No acute osseous abnormalities. XR/XR chest 2V IMPRESSION: No radiographically evident acute pulmonary abnormalities. Electronically signed by: Otoniel Espitia DO 08/03/2024 09:13 PM EDT RP
== END 2024-08-03 10:21 | disposition home or self-care (01) ==
LOC: HO.HMGCX 10:20
PROVIDERS: PCP Nurse Practitioner Family; Visit Provider Physician Assistant
DX: R05.9 Cough, unspecified (principal)
CPT/HCPCS: 71046

== ENCOUNTER 2024-09-05 13:28 | Outpatient (AMB) | payer MEDICARE, MEDICAID, SELFPAY ==
--- NOTE | 2024-09-05 14:17 | MHC.OFFWIV ---
Intake Vital Signs 09/05/24 14:26 Weight 294 lb BP 122/80 Blood Pressure Location Lt brachial Position Sitting Pulse 111 H Pulse Source Pulse Oximeter Pulse Oximetry (%) 94 Oxygen Delivery Method Room Air Intake Visit Reasons: EP LT knee pain/not better Intake Note: Patient here for left knee pain that happened about 6 nights ago. Patient Tobacco Use Status: Never used Tobacco Allergies No Known Allergies Allergy (Verified 09/05/24 14:23) Do you need a note to return to daycare/school/sports/work: No HPI HPI Comments History of Present Illness Details This is a 29-year-old male presenting with correction staff for evaluation of left knee pain. Patient states that he has chronic left knee pain for which he has had physical therapy. Patient states that at baseline he has minimal pain in his left anterior knee. Patient states he was outside approximately 6 days ago walking when he fell onto his knees at the front door after possibly tripping on something. Patient states that he was able to get up independently and is complaining of pain from his left thigh to his left anterior tibia. Patient has taken Tylenol only without relief of his discomfort. Patient denies any head injury or loss of consciousness as a result of this fall. [facility] Medical History H/O seborrheic dermatitis Bipolar 1 disorder Surgical History History of surgery on arm Social History Housing: House Patient Tobacco Use Status: Never used Tobacco e-Cigarette/Vaping Use: Currently Using service: No Current occupational status: employed Current occupation: [employer] Current occupational exposures/hazards: Yes Cognitive needs: No Hearing needs: No Vision needs: No Review of Systems Const All systems reviewed & are unremarkable except as noted in HPI and below Eyes Reports no additional complaints ENT Reports no additional complaints Card Reports no additional complaints Resp Reports no additional complaints GI Reports no additional complaints Reports no additional complaints Musc Reports abnormal gait, Reports arthralgias (left knee) and Reports muscle cramps (left thigh) Skin/Breast Reports system reviewed and no additional complaints, except as documented Neuro Reports no additional complaints and Reports abnormal gait Psych Reports no additional complaints Endo Reports no additional complaints Jerald/Lymph Reports no additional complaints Physical Exam Vital Signs: Last Vital Signs Pulse 111 H 09/05/24 14:26 BP 122/80 09/05/24 14:26 Pulse Ox 94 09/05/24 14:26 Oxygen Delivery Method Room Air 09/05/24 14:26 Repeat HR 92bpm Const General: cooperative, healthy appearing, comfortable, no acute distress, well developed, alert, awake and Physically active Nutritional Appearance: well nourished Orientation/consciousness: patient oriented x3 Limitations: crutches Skin General skin exam: no rashes or lesions noted (No ecchymosis, edema, erythema or abrasions of the left anterior knee) Lesions: no lesions Wounds: no wounds Neuro General: patient oriented x3 Extrem Left lower extremity: normal to inspection, full ROM (passive ROM left knee intact ), no joint enlargement, hip/thigh (pain to palpation of the patellar tendon and distal left thigh), knee Details: normal to inspection, normal ROM and knee ligament exam normal; no tenderness, no swelling, no ecchymosis and no unusual warmth, lower leg (no left calf pain, no pain to palpation of the proximal tibia) and ankle (ROM intact left ankle); no edema Psych Appearance: grossly normal Mental Status: mental status grossly normal Insight: Good insight present (Psych) Judgement: Good judgement present (Psych) Assessment & Plan Assessment & Plan (1) Strain of left knee: Comment: There is no bony tenderness upon examination of the left knee and therefore imaging is deferred at this time. Code(s): S86.912A - Strain of unspecified muscle(s) and tendon(s) at lower leg level, left leg, initial encounter Qualifiers: Encounter type: subsequent encounter Qualified Code(s): S86.912D - Strain of unspecified muscle(s) and tendon(s) at lower leg level, left leg, subsequent encounter Plan: YEIMY bandage placed for support and patient will be discharged with Naprosyn to take twice daily for the next 10 days. Patient is encouraged to not continue using the crutches and to use ice topically for 20 minute intervals after activity. Medications: New naproxen (Naprosyn) 500 mg PO BID 20 tabs 0RF Coding Level of Care Code Est Pt Level 3 (53721) Diagnoses Strain of left knee, subsequent encounter S86.912D Encounter type: subsequent encounter Time Spent (min) 20
[2024-09-05 14:26] VITALS: BP 122/80; PULSE 111; O2SAT 94
== END 2024-09-05 15:16 | disposition home or self-care (01) ==
PROVIDERS: PCP Nurse Practitioner Family; Visit Provider Physician Assistant
DX: S86.912D Strain of unspecified muscle(s) and tendon(s) at lower leg level, left leg, subsequent encounter (principal)

== ENCOUNTER → 2024-09-05 13:28 | Outpatient (BNVA) | payer MEDICARE, MEDICAID, SELFPAY | PROVIDERS: PCP Nurse Practitioner Family; Visit Provider Physician Assistant | DX: S86.912S Strain of unspecified muscle(s) and tendon(s) at lower leg level, left leg, sequela (principal) | CPT/HCPCS: 99212 ==

== ENCOUNTER 2024-12-22 13:27 | Outpatient (AMB) | payer MEDICARE, MEDICAID, SELFPAY ==
[2024-12-22 14:02] VITALS: BMI 42.2
--- NOTE | 2024-12-22 14:02 | MHC.OFFVIS ---
Vital Signs 12/22/24 14:02 Height 5 ft 10 in Weight 294 lb BMI 42.2 Intake Visit Reasons: New Pt - right ankle sprain, DOI? Intake Note: Gurjit is a 29 year old female who presents today as a new patient for a evaluation of his bilateral knee pain. patient reports about 2 - 3 weeks ago he slipped and fell on his right knee on black ice. Also his Left knee pain for 2 year with 2 sessions of PT in the past which made his pain worse. Patient states that his pain is worse on the left knee. Allergies No Known Allergies Allergy (Verified 12/22/24 14:44) HPI HPI New Pt - right ankle sprain, DOI?: Details: Mr. Holbrook is a 29-year-old male who presents to the office today for evaluation of bilateral knee pain. His right knee pain began after he slipped and fell on ice landing directly onto the right knee roughly 2-3 weeks ago. His left knee he reports that he has had chronic knee pain for many years. He attended physical therapy last year but continues to have chronic knee pain. He also endorses numbness and tingling in bilateral lower extremities with back pain. Additionally, he presents to the office today in a right ankle short walking boot. This is related to the slip and fall injury that occurred 2-3 weeks ago. He is using the assistance of crutches to help ambulate. There is a member from the [place] that is also present at today's visit. 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 No ecchymosis, erythema, or joint effusion. Global tenderness to palpation overall anatomical landmarks. Full knee extension and flexion bilaterally. Unable to accurately evaluate Jennifer's or anterior drawer due to patient guarding. NVI. Right ankle: Normal to inspection. No ecchymosis, erythema, or edema. Patient is able to demonstrate dorsiflexion, plantar flexion, pronation and supination with reported pain. Reported tenderness to palpation over the tibial and peroneal tendons. Unable to assess anterior drawer due to patient guarding. Sensation intact. Pedal Pulse intact. Assessment & Plan Assessment & Plan (1) Right ankle sprain: Code(s): S93.401A - Sprain of unspecified ligament of right ankle, initial encounter Category: Medical (2) Right knee sprain: Code(s): S83.91XA - Sprain of unspecified site of right knee, initial encounter Category: Medical (3) Internal derangement of left knee: Code(s): M23.92 - Unspecified internal derangement of left knee Category: Medical Plan Mr. Holbrook is a 29-year-old male who presents to the office today for evaluation of bilateral knee pain. His right knee pain began after he slipped and fell on ice landing directly onto the right knee roughly 2-3 weeks ago. His left knee he reports that he has had chronic knee pain for many years. He attended physical therapy last year but continues to have chronic knee pain. He also endorses numbness and tingling in bilateral lower extremities with back pain. Additionally, he presents to the office today in a right ankle short walking boot. This is related to the slip and fall injury that occurred 2-3 weeks ago. He is using the assistance of crutches to help ambulate. There is a member from the penit[place]iary in which he resides that is also present at today's visit. On the office today, we addressed multiple body parts and the plan is as follows; Right knee he will attend physical therapy for range of motion and strengthening. In regards to the patient's left knee he has tried and failed physical therapy in the past and continues to have chronic knee pain. I have ordered an MRI to further evaluate the integrity of the knee and the surrounding structures. The patient will attend physical therapy for the right ankle with a goal of weaning him out of the walking boot in the next 2 weeks. I would like him to discontinue crutches as soon as possible. Patient is in agreement with the plan I will see him back in 6 weeks, sooner if needed. X-rays of bilateral knees which were obtained while in the office today and were reviewed by Tere vivar PA-C, are negative for any acute fracture or dislocation. X-rays of the right ankle which were obtained while in the office today and were reviewed by Tere vivar PA-C, are negative for any acute fracture or dislocation. Orders: Orders XR knee RT 3V Today Joseph Sifuentes PA-C M17.11 - Unilateral primary osteoarthritis, right knee XR ankle RT min 3V Today Tere Mello PA-C M25.579 - Pain in unspecified ankle and joints of unspecified foot MR knee LT wo con Today Tere Mello PA-C M23.92 - Unspecified internal derangement of left knee XR knee LT 3V Today Joseph Sifuentes PA-C M25.562 - Pain in left knee PT Evaluation and Treatment Today Tere Mello PA-C S83.91XA - Sprain of unspecified site of right knee, initial encounter, S93.401A - Sprain of unspecified ligament of right ankle, initial encounter Coding Level of Care Code New Pt Level 4 (26794) Diagnoses Right ankle sprain S93.401A Right knee sprain S83.91XA Internal derangement of left knee M23.92
--- OUTSIDE RECORDS SUMMARY | 2024-12-22 17:02 | XMS_ITS | Clinical Summary ---
Author Organization [facility] Address [address] [place] [address] Care Team Providers Care Pipe Coverer And Insulator Name Role Phone Unavailable Primary Care Provider Unavailabl e Allergies No known active allergies Medications No known medications Social History Tobacco Use Types Packs/Day Years Used Date Smoking Tobacco: Never Smokeless Tobacco: Never Sex and Gender Information Value Date Recorded Sex Assigned at Not on file Legal Sex Male 12:51 PM EST Gender Identity Not on file Sexual Orientation Not on file Last Filed Vital Signs Vital Sign Reading Time Taken Comments Blood Pressure 127/79 12/03/2017 12:56 PM EST Pulse 78 12/03/2017 12:56 PM EST Temperature 37 ??C (98.6 ??F) 12/03/2017 12:56 PM EST Respiratory Rate 16 12/03/2017 12:56 PM EST Oxygen Saturation - - Inhaled Oxygen Concentration - - Weight - - Height - - Body Mass Index - - Plan of Treatment Health Maintenance Due Date Last Done Comments Hepatitis C Screening 1997 DTaP/Tdap/Td (1 - Tdap) 2015 Hep B (1 of 3 - 19+ 3-dose series) 2016 COVID-19 Vaccine (2023-2 5 season) 2024 Influenza (#1) 2024 Zoster (Shingrix) (1 of 2) 2047 HPV Vaccine Aged Out No longer eligi ble based on patient's age to complete this topic Hep A Aged Out No longer eligi ble based on patient's age to complete this topic Hib Aged Out No longer eligi ble based on patient's age to complete this topic Meningococcal ACWY Aged Out No longer eligible based on patient's age to complete this topic Pneumococcal Aged Out No longer eligi ble based on patient's age to complete this topic Insurance * Guarantor: [id number].MASS. Account Type Relation to Patient Date of Phone Billing Address [employer] [address] [place] [address] WORKERS COMPENSATION
== END 2024-12-22 15:12 | disposition home or self-care (01) ==
PROVIDERS: PCP Nurse Practitioner Family; Visit Provider Physician Assistant
DX: S93.401A Sprain of unspecified ligament of right ankle, initial encounter (principal); S83.91XA Sprain of unspecified site of right knee, initial encounter; M23.92 Unspecified internal derangement of left knee
CPT/HCPCS: 99204

== ENCOUNTER → 2024-12-22 13:43 | Outpatient (BNV) | payer MEDICARE, MEDICAID, SELFPAY | PROVIDERS: Visit Provider Radiology Diagnostic Radiology | DX: M17.11 Unilateral primary osteoarthritis, right knee (principal); M25.562 Pain in left knee; M25.571 Pain in right ankle and joints of right foot | CPT/HCPCS: 73562; 73610 ==

== ENCOUNTER 2024-12-22 14:35 | Outpatient (REF) | payer MEDICARE, MEDICAID, SELFPAY ==
--- NOTE | ~2024-12-22 | XR_ITS ---
CLINICAL HISTORY: M25.579 - Pain in unspecified ankle and joints of unspecified foot 3 view right ankle Comparison: CR/SR - XR ANKLE RT MIN 3V - 06/04/23 15:35 EDT Findings: Linear lucency traverses the posterior superior aspect of the navicular, with surrounding sclerosis. No significant loss of joint space, osteophytes, or erosions. No ankle effusion. No radiopaque foreign body. IMPRESSION: Possible healing navicular fracture. This document has been electronically signed by: Jeremi Garsia MD on 12/23/2024 13:35:11
--- NOTE | ~2024-12-22 | XR_ITS ---
CLINICAL HISTORY: M17.11 - Unilateral primary osteoarthritis, right knee 2 view right knee Comparison: None Findings: Bones intact. No dislocations. No significant loss of joint space, osteophytes, or erosions. No joint effusion. No radiopaque foreign body. IMPRESSION: 1. No acute findings. This document has been electronically signed by: Jeremi Garsia MD on 12/23/2024 13:34:45
--- NOTE | ~2024-12-22 | XR_ITS ---
CLINICAL HISTORY: M25.562 - Pain in left knee AP standing view of bilateral knees, two views of the left knee Comparison: None Findings: No fractures or dislocations. No significant arthritic change or erosions. No joint effusion. No radiopaque foreign body. IMPRESSION: 1. No acute findings. This document has been electronically signed by: Jeremi Garsia MD on 12/23/2024 13:34:42
--- OUTSIDE RECORDS SUMMARY | 2024-12-22 18:25 | XMS_ITS | Clinical Summary ---
Author Organization [facility] Address [address] [place] [address] Care Team Providers Care Geriatric Physician Name Role Phone Unavailable Primary Care Provider [...] to complete this topic Insurance * Guarantor: [id number]. Account Type Relation to Patient Date of Phone Billing Address [employer] [address] [place] [address] WORKERS COMPENSATION
== END 2024-12-22 14:36 | disposition home or self-care (01) ==
LOC: HO.HOSX 14:35
PROVIDERS: Visit Provider Physician Assistant
DX: M17.11 Unilateral primary osteoarthritis, right knee (principal); M25.562 Pain in left knee; M25.579 Pain in unspecified ankle and joints of unspecified foot; S93.401A Sprain of unspecified ligament of right ankle, initial encounter; S83.91XA Sprain of unspecified site of right knee, initial encounter; M23.92 Unspecified internal derangement of left knee
CPT/HCPCS: 73562; 73610; 99202

== ENCOUNTER → 2024-12-31 14:19 | Outpatient (BNV) | payer MEDICARE, MEDICAID, SELFPAY | PROVIDERS: PCP Nurse Practitioner Family; Visit Provider Radiology Diagnostic Radiology | DX: S83.272A Complex tear of lateral meniscus, current injury, left knee, initial encounter (principal) | CPT/HCPCS: 73721 ==

== ENCOUNTER 2024-12-31 14:54 | Outpatient (REF) | payer MEDICARE, MEDICAID, SELFPAY ==
--- NOTE | ~2024-12-31 | MR_ITS ---
EXAMINATION: MRI LEFT KNEE WITHOUT CONTRAST HISTORY: M23.92 - Unspecified internal derangement of left knee COMPARISON: Relation is made to plain films of the left knee dated 12/22/2024. TECHNIQUE: Coronal T1 and fat-suppressed proton density, sagittal proton density and fat-suppressed proton density, and axial fat suppressed T2 weighted MR images of the left knee were obtained. FINDINGS: Bone marrow: Bone marrow signal intensity is normal. Joint effusion: There is no joint effusion. Pagan's cyst: There is no Pagan's cyst. Articular cartilage: Intact Muscles/soft tissues: The visualized muscles demonstrate normal signal intensity. Anterior cruciate ligament: Intact Posterior cruciate ligament: Intact Medial collateral ligament: Intact Lateral collateral ligament: Intact Medial meniscus: Intact Lateral meniscus: There is an obliquely oriented linear focus of increased signal intensity in the posterior horn of the lateral meniscus which contacts the superior and inferior joint surfaces, consistent with a tear. The anterior horn is intact. Flexor mechanism: The popliteus, gastrocnemius, and hamstring tendons are intact. Quadriceps tendon: Intact Patellar tendon: Intact Patellar retinacula: Intact MR/MR knee LT wo con IMPRESSION: Oblique tear of the posterior horn of the lateral meniscus. Otherwise unremarkable MRI of the left knee. Electronically signed by: Ricco East MD 01/02/2025 09:20 AM EDT
== END 2024-12-31 14:55 | disposition home or self-care (01) ==
LOC: HO.MRI 14:54
PROVIDERS: PCP Nurse Practitioner Family; Visit Provider Nurse Practitioner Family
DX: M23.92 Unspecified internal derangement of left knee (principal)
CPT/HCPCS: 73721

== ENCOUNTER 2025-01-05 14:06 | Outpatient (RCR) | payer MEDICARE, MEDICAID, SELFPAY ==
--- NOTE | 2025-01-05 15:01 | MHC.PT.EP ---
[facility] [place] Office [place] [facility] [place] Office [address] [phone] F: [phone] F: [phone] F: [phone] F: [phone] Physical Therapy Plan of Care Date of Evaluation: 01/05/25 Date of Surgery: Diagnosis: R knee sprain, R ankle sprain. Assessment: Patient is a 29 year old R handed male who presents with s/s consistent with R knee and ankle sprain. He does not work but does participate in an activity program multiple days per week. Patient past medical history includes mild intellectual impairment, bipolar disorder, autism and impulsivity. Current impairments include pain, flexibility, ROM, strength, activity tolerance and functional mobility. Functional limitations include decreased ability to walk, stand, be active, play sports, and be on feet. Patient is motivated with good rehab potential. Skilled PT will address impairments and functional limitations in order to achieve goals. Frequency and Duration: The patient will be seen 2x/week for 5 weeks Short Term Goals: I with HEP - 2 weeks AROM knee flexion to 120 - 3 weeks DF AROM to 8 - 3 weeks PF to 40 - 3 weeks Manager Of Internal Audit Goals: LEFS 50/80 - 5 weeks Strength 4/5 grossly - 5 weeks Able to stand/walk > 1 hour - 5 weeks Treatment Plan: Modalities to reduce pain, spasms and effusion. Manual therapy to restore motion and function. Therapeutic exercise to improve strength and flexibility. Neuromuscular re-education for posture and balance. Therapeutic activities to return to functional activities of daily living. Electronically signed by: Winston Shipman PT Please sign and return to therapist. Thank you for your referral.
--- NOTE | 2025-05-02 10:23 | MHC.PT.DC ---
[facility] [place] Office [place] Office [place] Office [address] Jeremy Pritchett [address] [phone] F: [phone] F: [phone] F: [phone] F: [phone] Physical Therapy Discharge Report Diagnosis: R knee sprain, R ankle sprain. Date of Surgery: Date of Evaluation: 01/05/25 Date of Discharge: 02/01/25 Treatments to Date: 1 Cancellations to Date: No Shows to Date: Discharge Status: Patient Elected to Stop Visit Non-compliance Discharge Summary: Patient is a 29 year old R handed male who presents with s/s consistent with R knee and ankle sprain. He does not work but does participate in an activity program multiple days per week. Patient past medical history includes mild intellectual impairment, bipolar disorder, autism and impulsivity. Current impairments include pain, flexibility, ROM, strength, activity tolerance and functional mobility. Functional limitations include decreased ability to walk, stand, be active, play sports, and be on feet. Patient is motivated with good rehab potential. Skilled PT will address impairments and functional limitations in order to achieve goals. Electronically signed by: Winston Shipman, PT Please sign and return to therapist. Thank you for your referral.
== END 2025-05-02 10:24 | disposition home or self-care (01) ==
LOC: HO.PTCHIC 14:06
PROVIDERS: PCP Nurse Practitioner Family; Visit Provider Physician Assistant
DX: S93.401D Sprain of unspecified ligament of right ankle, subsequent encounter (principal); S83.91XD Sprain of unspecified site of right knee, subsequent encounter
CPT/HCPCS: 97110; 97162

== ENCOUNTER 2025-01-26 13:39 | Outpatient (AMB) | payer MEDICARE, MEDICAID, SELFPAY ==
[2025-01-26 13:41] VITALS: BMI 42.2
--- NOTE | 2025-01-26 13:41 | MHC.OFFVIS ---
Vital Signs 01/26/25 13:41 Height 5 ft 10 in Weight 294 lb BMI 42.2 Intake Visit Reasons: OV - left knee MRI review Intake Note: Gurjit is a 29 year old male who presents today for an MRI Review of his Left Knee. Patient was last seen with Joseph Sifuentes where he reported ongoing pain for about two years, tried and failed PT. Left Knee MRI 12/31/24 IMPRESSION: Oblique tear of the posterior horn of the lateral meniscus. Otherwise unremarkable MRI of the left knee. Allergies No Known Allergies Allergy (Verified 12/22/24 14:44) HPI HPI OV - left knee MRI review: Details: This is a 29 yo M with a history of left knee pain. He describes numbness and tingling in the distal thigh and difficulty with stairs. He has pain mostly over the front os his knee. He had and MRI ordered and is here today for review. This has been going of for years. 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 retropatellar pain with resisted knee extension 5/5 TA/GC/quad/ham 4+/5 Psoas but painful so difficult to interpret Office Procedures Joint Inj/Aspir; Non-Pain Clin Joint Injection/Drain Details: Injected 1 mL of Decadron and 3 mL 1% lidocaine and 3 mL of 0.25% Marcaine. Site was prepped using aseptic technique. Patient tolerated the procedure well. Shoulders, Hips, Knees, Knee Large Joint Injection [id number]: Left Knee Coding Procedure code (CPT) selection complete Results Reviewed Results Reviewed: I personally reviewed the MR images. Oblique tear of the posterior horn of the lateral meniscus. Otherwise unremarkable MRI of the left knee. Assessment & Plan Assessment & Plan (1) Internal derangement of left knee: Code(s): M23.92 - Unspecified internal derangement of left knee Category: Medical Plan: This is a 79-year-old with a oblique tear of the lateral meniscus of the left knee. This is questionably symptomatic as I can not really reproduce any meniscal signs but he does have knee pain. I injected his knee to try to differentiate the intra-articular pain from the extra-articular numbness and tingling. He will see me back in 4 weeks. I described this to him he expressed understanding. (2) Numbness and tingling of left leg: Code(s): R20.0 - Anesthesia of skin; R20.2 - Paresthesia of skin Category: Medical Plan: Coding Level of Care Code Est Pt Level 4 (11235) Diagnoses Internal derangement of left knee M23.92 Numbness and tingling of left leg R20.0; R20.2 CPT Codes Shoulders, Hips, Knees, - Knee Large Joint Injection : Left Knee ([id number])
--- OUTSIDE RECORDS SUMMARY | 2025-01-26 16:42 | XMS_ITS | Clinical Summary ---
Author Organization [facility] Address [address] [place] [address] Care Team Providers Care District Supervisor Name Role Phone Unavailable Primary Care Provider [...] to complete this topic Insurance * Guarantor: [id number].[email or web address]. Account Type Relation to Patient Date of Phone Billing Address Work[address] [address] [place] [address] WORKERS COMPENSATION
== END 2025-01-26 14:12 | disposition home or self-care (01) ==
LOC: HO.HOS 13:39
PROVIDERS: PCP Nurse Practitioner Family; Visit Provider Orthopaedic Surgery
DX: M23.92 Unspecified internal derangement of left knee (principal); R20.0 Anesthesia of skin; R20.2 Paresthesia of skin
CPT/HCPCS: 20610; 99214

== ENCOUNTER → 2025-01-26 13:39 | Outpatient (BNVA) | payer MEDICARE, MEDICAID, SELFPAY | PROVIDERS: PCP Nurse Practitioner Family; Visit Provider Orthopaedic Surgery | DX: M23.92 Unspecified internal derangement of left knee (principal); R20.0 Anesthesia of skin; R20.2 Paresthesia of skin; M25.562 Pain in left knee; Z71.2 Person consulting for explanation of examination or test findings | CPT/HCPCS: 20610; 99212; J0665; J1100; J2003 ==

== ENCOUNTER 2025-02-21 10:05 | Outpatient (REF) | payer MEDICARE, MEDICAID, SELFPAY ==
--- NOTE | ~2025-02-21 | XR_ITS ---
EXAMINATION: XR ANKLE 3 OR MORE VIEWS RIGHT HISTORY: M25.579 - Pain in unspecified ankle and joints of unspecified foot COMPARISON: Comparison is made with the prior examination dated 12/22/2024. FINDINGS: Three views of the right ankle are submitted. Osseous mineralization is normal. Again seen is a lucency through the dorsal navicular. The line may be visible. The joint spaces are preserved. The soft tissues are unremarkable. XR/XR ankle RT min 3V IMPRESSION: Probable nondisplaced fracture of the dorsal navicular without change. Electronically signed by: Ricco East MD 02/21/2025 01:50 PM EDT
--- OUTSIDE RECORDS SUMMARY | 2025-02-22 11:02 | XMS_ITS | Clinical Summary ---
Author Organization [facility] Address [address] [place] [address] Care Team Providers Care Customs Opener Verifier Packer Name Role Phone Unavailable Primary Care Provider [...] to complete this topic Insurance * Guarantor: [id number]. Account Type Relation to Patient Date of Phone Billing Address Worker's Comp [address] [place] [address] WORKERS COMPENSATION
== END 2025-02-21 10:06 | disposition home or self-care (01) ==
LOC: HO.HOSX 10:05
PROVIDERS: Visit Provider Physician Assistant
DX: M25.571 Pain in right ankle and joints of right foot (principal); S92.251A Displaced fracture of navicular [scaphoid] of right foot, initial encounter for closed fracture
CPT/HCPCS: 73610; 99212

== ENCOUNTER 2025-02-21 13:19 | Outpatient (AMB) | payer MEDICARE, MEDICAID, SELFPAY ==
--- NOTE | 2025-02-21 13:29 | A.OFFVIS_ITS ---
Intake Visit Reasons: OV- RT ankle sprain s/p fall Intake Note: Gurjit is a 29 year old female who presents today for a follow up of his right ankle sprain, DOI 11/2024. At his last visit he was referred to physical therapy with a goal of weaning him out of the walking boot and to discontinue crutches as soon as possible. Patient mentions that he switched to a supported shoe about a month ago and he is having pain. Hasn't worked with PT. Allergies No Known Allergies Allergy (Verified 02/21/25 13:41) HPI HPI OV- RT ankle sprain s/p fall: Details: Mr. Holbrook is a 29-year-old male who presents to the office today for evaluation of a right foot and ankle injury that he sustained in November of this year. He states that he was playing basketball and he came down awkwardly inverting the right ankle. At his last appointment he was referred to physical therapy with the goal of weaning him out of the walking boot. The patient reports that he weaned out of the walking boot about 1 month ago and into a supportive shoe. He continues to have pain. Unfortunately, the patient has not participated in any physical therapy at this time. 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 No ecchymosis, erythema, or edema. Patient is able to demonstrate dorsiflexion, plantar flexion, pronation and supination with reported pain. Reported tenderness to palpation over the tibial and peroneal tendons. Unable to assess anterior drawer due to patient guarding. Sensation intact. Pedal Pulse intact. Assessment & Plan Assessment & Plan (1) Closed navicular fracture of right ankle: Code(s): S92.251A - Displaced fracture of navicular [scaphoid] of right foot, initial encounter for closed fracture Category: Medical Plan Mr. Holbrook is a 29-year-old male who presents to the office today for evaluation of a right foot and ankle injury that he sustained in November of this year. He states that he was playing basketball and he came down awkwardly inverting the right ankle. At his last appointment he was referred to physical therapy with the goal of weaning him out of the walking boot. The patient reports that he weaned out of the walking boot about 1 month ago and into a supportive shoe. He continues to have pain. Unfortunately, the patient has not participated in any physical therapy at this time. While in the office today, I recommended that the patient continue in the supportive walking sneaker. I recommended that he again work with physical therapy and a new order has been placed while in the office today. He will follow up in 4 weeks, sooner if needed. X-rays of the right ankle which were obtained while in the office today and were reviewed by me, Tere Mello PA-C, revealed routine healing right navicular fracture. Orders: Orders XR ankle RT min 3V Today M25.579 - Pain in unspecified ankle and joints of unspecified foot Coding Level of Care Code Global (44287) Diagnoses Closed navicular fracture of right ankle S92.251A
--- OUTSIDE RECORDS SUMMARY | 2025-02-21 14:25 | XMS_ITS | Clinical Summary ---
Author Organization [facility] Address [address] [place] [address] Care Team Providers Care Senior Loss Control Specialist Name Role Phone Unavailable Primary Care Provider [...] to complete this topic Insurance * Guarantor: [id number]. Account Type Relation to Patient Date of Phone Billing Address Worker's Comp [address] [place] [address] WORKERS COMPENSATION
== END 2025-02-21 14:00 | disposition home or self-care (01) ==
LOC: HO.HOS 13:20
PROVIDERS: PCP Nurse Practitioner Family; Visit Provider Physician Assistant
DX: S92.251A Displaced fracture of navicular [scaphoid] of right foot, initial encounter for closed fracture (principal)
CPT/HCPCS: 99213

== ENCOUNTER → 2025-02-21 13:22 | Outpatient (BNV) | payer MEDICARE, MEDICAID, SELFPAY | PROVIDERS: Visit Provider Radiology Diagnostic Radiology | DX: M25.571 Pain in right ankle and joints of right foot (principal) | CPT/HCPCS: 73610 ==

== ENCOUNTER 2025-02-27 13:17 | Outpatient (AMB) | payer MEDICARE, MEDICAID, SELFPAY ==
--- OUTSIDE RECORDS SUMMARY | 2025-02-27 13:20 | XMS_ITS | Clinical Summary ---
Author Organization [facility] Address [address] [place] [address] Care Team Providers Care Caddymaster Name Role Phone Unavailable Primary Care Provider [...] to complete this topic Insurance * Guarantor: [id number]. Account Type Relation to Patient Date of Phone Billing Address Worker's Comp [address] [place] [address] WORKERS COMPENSATION
--- NOTE | 2025-02-27 13:26 | A.OFFVIS_ITS ---
Intake Visit Reasons: OV - left knee-one month follow up Intake Note: Gurjit is a 29 year old male who presents today for a follow up of his left knee. He has a oblique tear of his lateral meniscus, the Left knee was injected at his last visit on 01/26/25 to differentiate the intra-articular pain from the extra-articular numbness and tingling. Patient reports that he is having continued pain, this pain has increased. He is struggling going up and down stairs, getting in and out of vehicles and prolonged walking. He is not taking anyhting for his pain as he does not have tylenol at home. Allergies No Known Allergies Allergy (Verified 02/27/25 13:26) HPI HPI OV - left knee-one month follow up: Details: This is a 29-year-old who comes in today with left knee pain. I injected his left knee about a month ago. He felt relief from the injection for 1 week and then it went away. He has difficulty climbing stairs and climbing into vehicles. He states the pain is not unbearable but it does bother him significantly. The distal thigh pain that he was having is no longer present. He has not done physical therapy. 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 retropatellar pain with resisted knee extension Assessment & Plan Assessment & Plan (1) Pain of left patellofemoral joint: Code(s): M25.562 - Pain in left knee Category: Medical Plan: Left retropatellar pain. He has pain with getting into vehicles and with climbing. I recommend physical therapy. He has been written a prescription for physical therapy in addition I wrote him a note for no climbing as he is having some difficulties with some of the day programs that he is in. He may follow up as needed. Coding Level of Care Code Est Pt Level 3 (55037) Diagnoses Pain of left patellofemoral joint M25.562
== END 2025-02-27 13:50 | disposition home or self-care (01) ==
LOC: HO.HOS 13:18
PROVIDERS: PCP Nurse Practitioner Family; Visit Provider Orthopaedic Surgery
DX: M25.562 Pain in left knee (principal)
CPT/HCPCS: 99213

== ENCOUNTER → 2025-02-27 13:17 | Outpatient (BNVA) | payer MEDICARE, MEDICAID, SELFPAY | PROVIDERS: PCP Nurse Practitioner Family; Visit Provider Orthopaedic Surgery | DX: M25.562 Pain in left knee (principal) | CPT/HCPCS: 99212 ==

== ENCOUNTER 2025-04-07 07:14 | Outpatient (REF) | payer MEDICARE, MEDICAID, SELFPAY ==
--- NOTE | ~2025-04-07 | XR_ITS ---
EXAMINATION: XR ANKLE, RIGHT CLINICAL INFORMATION: M25.579 - Pain in unspecified ankle and joints of unspecified foot COMPARISON: December 22, 2024 reported probably fractured dorsal navicular.. TECHNIQUE: AP, lateral, and mortise views of the right ankle. FINDINGS: Sclerosis within the lucency in the dorsal aspect of the tarsonavicular. Medial and malleolus are intact. No joint effusion. The tibiotarsal and fibular joint spaces are normal. No subcutaneous emphysema. 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 Electronically signed by: Vicente Velazquez MD 04/07/2025 12:39 PM EDT
== END 2025-04-07 07:15 | disposition home or self-care (01) ==
LOC: HO.HOSX 07:14
PROVIDERS: Visit Provider Physician Assistant
DX: S93.401A Sprain of unspecified ligament of right ankle, initial encounter (principal)
CPT/HCPCS: 73610; 99212

== ENCOUNTER 2025-04-07 11:44 | Outpatient (AMB) | payer MEDICARE, MEDICAID, SELFPAY ==
--- NOTE | 2025-04-07 11:54 | MHC.OFFVIS ---
Vital Signs 04/07/25 12:12 Height 5 ft 10 in Weight 294 lb BMI 42.2 Intake Visit Reasons: OV- RT ankle sprain s/p fall Intake Note: Gurjit is a 29 year old female who presents for a follow up of his right ankle navicular fracture, DOI 11/2024. At his last visit patient was recommended to attend physical therapy and to follow up in office with new x-rays in 4 weeks. Today patient reports about 5-6 days ago he stepped in a hole causing him to twist his ankle and fall. States pain at the medial side of ankle with attending therapy due to recent injury to his ankle. Allergies No Known Allergies Allergy (Verified 04/07/25 12:09) HPI HPI OV- RT ankle sprain s/p fall: Details: Mr. Holbrook is a 29-year-old male who presents to the office today accompanied by 1 of the faculty from the residential in which he resides. He reports that his right ankle hip is doing fairly well up until about 5 days ago when he stepped into a hole and twisted. Ever since then he has had an increase in pain and has regressed and physical therapy. He continues to attend physical therapy but is having difficulty due to pain. 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 No ecchymosis, erythema, or edema. Patient is able to demonstrate dorsiflexion, plantar flexion, pronation and supination. Tenderness to palpation over the anterior aspect of the ankle and medial malleolus. Negative anterior drawer. Sensation intact. Pedal Pulse intact. Assessment & Plan Assessment & Plan (1) Right ankle sprain: Code(s): S93.401A - Sprain of unspecified ligament of right ankle, initial encounter Category: Medical Plan While in the office today, the patient was fit for a lace-up ankle brace. He will continue physical therapy. Recommendation for conservative treatment including rest ice compression elevation were given. He will follow up in 6 weeks, sooner if needed. X-rays of the writing which were obtained while in the office today and were reviewed by me, Tere Mello PA-C, revealed healed navicular fracture. No additional acute fractures or dislocation. Orders: Orders XR ankle RT min 3V Today M25.579 - Pain in unspecified ankle and joints of unspecified foot Coding Level of Care Code Est Pt Level 3 (02339) Diagnoses Right ankle sprain S93.401A
[2025-04-07 12:12] VITALS: BMI 42.2
--- OUTSIDE RECORDS SUMMARY | 2025-04-07 12:54 | XMS_ITS | Clinical Summary ---
Author Organization [facility] Address [address] [place] [address] Care Team Providers Care Batting Machine Operator Name Role Phone Unavailable Primary Care Provider [...] 78 12/03/2017 12:56 PM EST Temperature 37 C (98.6 F) 12/03/2017 12:56 PM EST Respiratory Rate 16 [...] COVID-19 Vaccine (2023-2 5 season) 2024 Influenza (Season Ended) 2025 Zoster (Shingrix) (1 of 2) 2047 HPV [...] to complete this topic Insurance * Guarantor: [id number]. Account Type Relation to Patient Date of Phone Billing Address Worker's Comp [address] [place] [address] WORKERS COMPENSATION
== END 2025-04-07 12:23 | disposition home or self-care (01) ==
LOC: HO.HOS 11:45
PROVIDERS: PCP Nurse Practitioner Family; Visit Provider Physician Assistant
DX: S93.401A Sprain of unspecified ligament of right ankle, initial encounter (principal)
CPT/HCPCS: 99213

== ENCOUNTER → 2025-04-07 12:01 | Outpatient (BNV) | payer MEDICARE, MEDICAID, SELFPAY | PROVIDERS: Visit Provider Radiology Diagnostic Radiology | DX: M85.871 Other specified disorders of bone density and structure, right ankle and foot (principal) | CPT/HCPCS: 73610 ==

== ENCOUNTER 2025-04-20 15:00 | Outpatient (RCR) | payer MEDICARE, MEDICAID, SELFPAY ==
--- NOTE | 2025-03-22 14:45 | MHC.PT.EP ---
[facility] [place] Office [place] Office [place] Office [address] Jeremy Pritchett [address] [phone] F: [phone] F: [phone] F: [phone] F: [phone] Physical Therapy Plan of Care Date of Evaluation: 03/22/25 Date of Surgery: Diagnosis: This is a 29 yo male presenting to skilled PT with a script for closed navicular fracture of R ankle. Assessment: This is a 29 yo male presenting to skilled PT with a script for closed navicular fracture of R ankle. Patient reported that he sprained his ankle playing basketball in . Then, 2 weeks later, he fell down the stairs (about 12 steps) and his ankle rolled in (December). He ended up with a navicular fracture. He saw [facility] ortho, was put in a boot with crutches for a few months but has not been in the boot for about 1-2 months now. Pain now increases with long distances (little over a mile), standing for a long period of time and stairs. Pain is located anterior and lateral ankle joint. Pain is described as uncomfortable. He gets swelling occasionally still. Assessment reveals pain that ranges from up to a 9/10 at the worst. Patient demos decreased R knee and ankle ROM, strength of B LE's, TTP at anterior and lateral ankle joint, decreased gait pattern and balance and impaired posture with forward head, forward trunk and rounded shoulders. Based on functional limitations, impaired QOL and pain tolerance patient is a good candidate for skilled PT 2x/wk for 4wks. Frequency and Duration: The patient will be seen 2x/wk for 4wks Short Term Goals: (in 2 weeks) Patient will ankle knee AROM by at least 10 degs without assist or pain in all directions Patient will demo good understanding and performance of quad set in multiple different planes without cues from PT Patient will be I in HEP Detention Goals: (in 4 weeks) Patient will report 75% improvement in balance and strength of LLE as evidenced by reports no of falls or buckling in LE Patient will improve LEFs by 10 points Patient will demo WFL AROM of knee and ankle Patient will demo proper squat and lift techniques without increase in pain Patient will return to normal walking routines, exercise routines and ADLs without pain Treatment Plan: Modalities to reduce pain, spasms and effusion. Manual therapy to restore motion and function. Therapeutic exercise to improve strength and flexibility. Neuromuscular re-education for posture and balance. Therapeutic activities to return to functional activities of daily living. Electronically signed by: Komal Contreras PT Please sign and return to therapist. Thank you for your referral.
--- NOTE | 2025-05-18 09:24 | MHC.PT.DC ---
[facility] [place] Office [place] Office [place] Office [address]ritchett [address] [phone] F: [phone] F: [phone] F: [phone] F: [phone] Physical Therapy Discharge Report Diagnosis: This is a 29 yo male presenting to skilled PT with a script for closed navicular fracture of R ankle. Date of Surgery: Date of Evaluation: 03/22/25 Date of Discharge: 05/18/25 Treatments to Date: 5 Cancellations to Date: 0 No Shows to Date: 0 Discharge Status: Independent with HEP Discharge Summary: Patient came to 5 sessions of PT with multiple cancels once more. He was educated on importance of movement, footwear and HEP but demos little carryover and motivation. Due to attendance and carryover patient was DC'd to HEP. Electronically signed by: Komal Contreras PT Please sign and return to therapist. Thank you for your referral.
== END 2025-05-18 09:24 | disposition home or self-care (01) ==
LOC: HO.PTCHIC 15:00
PROVIDERS: PCP Nurse Practitioner Family; Visit Provider Physician Assistant
DX: S92.251D Displaced fracture of navicular [scaphoid] of right foot, subsequent encounter for fracture with routine healing (principal); X50.1XXD Overexertion from prolonged static or awkward postures, subsequent encounter; W10.9XXD Fall (on) (from) unspecified stairs and steps, subsequent encounter
CPT/HCPCS: 97110; 97112; 97162

== ENCOUNTER 2025-05-23 08:17 | Outpatient (AMB) | payer MEDICARE, MEDICAID, SELFPAY ==
--- NOTE | 2025-05-23 08:24 | MHC.OFFVIS ---
Intake Visit Reasons: OV - right ankle sprain, DOI 11/2024 Intake Note: Gurjit is a 29 year old male who presents for follow up of his right ankle sprain, DOI 11/2024. At his last visit he was fitted for a lace-up ankle brace. He was advised to continue physical therapy. Patient states that his pain is still in his ankle. He mentions having pain with eversion and inversion movements. Allergies No Known Allergies Allergy (Verified 05/23/25 08:35) HPI HPI OV - right ankle sprain, DOI 11/2024: Details: Mr. Holbrook is a 29-year-old male who presents to the office today accompanied by one of his long term members for continued right foot and ankle pain status post closed navicular fracture. Date of injury was in November of this year. He reports that he attended physical therapy and he had no improvement of symptoms. However, upon further investigation the patient attended roughly 5 visits of physical therapy and had multiple cancellations and no-shows and therefore has been discharged for a 2nd time. He presents to the office today where [facility]. He is no longer wearing the lace-up ankle brace that was provided to him at the last appointment. 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 No ecchymosis, erythema, or edema. Patient is able to demonstrate dorsiflexion, plantar flexion, pronation and supination with stiffness. Tenderness to palpation over the anterior aspect of the ankle and medial malleolus. Negative anterior drawer. Sensation intact. Pedal Pulse intact. Psych Appearance: grossly normal Mental Status: mental status grossly normal Attitude: cooperative Assessment & Plan Assessment & Plan (1) Closed navicular fracture of right ankle: Code(s): S92.251A - Displaced fracture of navicular [scaphoid] of right foot, initial encounter for closed fracture Category: Medical (2) Right ankle sprain: Code(s): S93.401A - Sprain of unspecified ligament of right ankle, initial encounter Category: Medical Plan Mr. Holbrook is a 29-year-old male who presents to the office today accompanied by one of his long term members for continued right foot and ankle pain status post closed cuboid fracture. Date of injury was in November of this year. He reports that he attended physical therapy and he had no improvement of symptoms. However, upon further investigation the patient attended roughly 5 visits of physical therapy and had multiple cancellations and no-shows and therefore has been discharged for a 2nd time. He presents to the office today where Crocs. He is no longer wearing the lace-up ankle brace that was provided to him at the last appointment. Unfortunately, the patient has been noncompliant in regards to his recovery recommendations. I have given the patient a printed physical therapy prescription to attend an outside facility as he has had many cancellations and no-shows at [facility] and has been discharged. I have recommended he discontinue the use of the lace-up ankle brace at this time to avoid any further stiffness. However, the patient is not wearing it to today's appointment so it is unclear if he has been compliant with this recommendation or not. I discussed with the patient the importance of physical therapy and continue dedication to therapy in regards to the lingering stiffness that he has had. Due to his noncompliance there is no additional orthopedic recommendations besides attending physical therapy at this time. Should the patient have continued pain he/the long term we will reach out to our office for further recommendations. At that time, the likely next recommendation would be Podiatry. Orders: Orders PT Evaluation and Treatment Today S92.213A - Displaced fracture of cuboid bone of unspecified foot, initial encounter for closed fracture, S93.401A - Sprain of unspecified ligament of right ankle, initial encounter Coding Level of Care Code Est Pt Level 3 (69505) Diagnoses Closed navicular fracture of right ankle S92.251A Right ankle sprain S93.401A
--- OUTSIDE RECORDS SUMMARY | 2025-05-23 08:28 | XMS_ITS | Clinical Summary ---
Author Organization [facility] Address [address] [place] [address] Care Team Providers Care Subsystems Engineer Name Role Phone Unavailable Primary Care Provider [...] Vaccine (2023-2 5 season) 2024 Influenza (#1) 2025 Zoster (Shingrix) (1 of 2) 2047 HPV Vaccine (No Doses Required) Completed Hep A Aged Out No longer eligi [...] to complete this topic Insurance * Guarantor: [id number]. Account Type Relation to Patient Date of Phone Billing Address Worker's Comp [address] [place] [address] WORKERS COMPENSATION
== END 2025-05-23 08:43 | disposition home or self-care (01) ==
LOC: HO.HOS 08:18
PROVIDERS: PCP Nurse Practitioner Family; Visit Provider Physician Assistant
DX: S92.251A Displaced fracture of navicular [scaphoid] of right foot, initial encounter for closed fracture (principal); S93.401A Sprain of unspecified ligament of right ankle, initial encounter
CPT/HCPCS: 99213

== ENCOUNTER → 2025-05-23 08:17 | Outpatient (BNVA) | payer MEDICARE, MEDICAID, SELFPAY | PROVIDERS: PCP Nurse Practitioner Family; Visit Provider Physician Assistant | DX: S92.251D Displaced fracture of navicular [scaphoid] of right foot, subsequent encounter for fracture with routine healing (principal); S93.401D Sprain of unspecified ligament of right ankle, subsequent encounter | CPT/HCPCS: 99212 ==

== ENCOUNTER 2025-06-07 11:34 | Outpatient (AMB) | payer MEDICARE, MEDICAID, SELFPAY ==
--- NOTE | 2025-06-07 11:41 | MHC.PC.OV ---
Vital Signs 06/07/25 11:42 Height 5 ft 10 in Weight 316 lb BMI 45.3 BP 122/88 Blood Pressure Location Lt brachial Respiration 16 Pulse 84 Pulse Source Pulse Oximeter Temp 98.0 F Temp Source Oral Pulse Oximetry (%) 96 Oxygen Delivery Method Room Air Intake Visit Reasons: Acid reflux Accompanied by: Self / Same As Patient Allergies No Known Allergies Allergy (Verified 06/07/25 11:42) Tobacco use date assessed: 06/07/25 Dental Screening Dental Screen Date: 03/31/24 HPI Acid reflux HPI Details Chief Complaint The patient complains of ongoing gastroesophageal reflux symptoms for three weeks. History of Present Illness The patient is a 29-year-old male presenting with symptoms of gastroesophageal reflux disease (GERD). He reports experiencing these symptoms for the past three weeks, primarily at night, which are likely related to dietary habits. The patient is morbidly obese, which may contribute to the severity of his GERD symptoms. Social History Health Maintenance Review of Systems - Gastrointestinal: Reports gastroesophageal reflux symptoms primarily at night for three weeks. - Cardiovascular: Denies chest pain. Physical Exam General: Cooperative, healthy appearing, comfortable, no acute distress and well developed, morbidly obese Orientation: Patient oriented x3 Limitations: No limitations Head: Normal to inspection Ears: Hearing grossly normal bilaterally Nose: Normal external nose present Face and sinus: Normal facial exam Eyes: Appearance normal, both eyes and all related structures Neck: Normal visual inspection and Yes full ROM Respiratory: Normal respiratory effort and able to speak in complete sentences. Clear to auscultation bilaterally Cardiovascular: Regular rate and rhythm. Normal S1 and S2 GI: Normal to inspection. Soft to palpation and nontender Skin: No rashes or lesions noted Neuro: Patient oriented x3 Extremities: Normal to inspection Results Plan 1. Gastroesophageal Reflux Disease (Gerd) The patient will be started on pantoprazole to manage his GERD symptoms. An electrocardiogram (EKG) will be performed today to rule out any cardiac issues. 2. Obesity, Morbid The patient's morbid obesity is noted as a contributing factor to his GERD symptoms. Discussion Notes I discussed with the patient the initiation of pantoprazole for his GERD symptoms and the need for an EKG to rule out any cardiac issues. Encouraged Labs to be drawn in the near future Patient Instructions - Start taking pantoprazole as prescribed. - Undergo the EKG today as planned. 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 1. Little interest or pleasure in doing things: several days 2. Feeling down, depressed, or hopeless: several days 3. Trouble falling or staying asleep, or sleeping too much: nearly every day 4. Feeling tired or having little energy: nearly every day 5. Poor appetite or overeating: more than half the days 6. Feeling bad about yourself - or that you are a failure or have let yourself or your family down: not at all 7. Trouble concentrating on things, such as reading the newspaper or watching television: not at all 8. Moving or speaking so slowly that other people could have noticed. Or the opposite - being so fidgety or restless that you have been moving around a lot more than usual: several days 9. Thoughts that you would be better off or of hurting yourself in some way: not at all Total score: 11 Depression Screening Interpretation: Positive Depression Screening Done: Yes 64923 - PHQ-9 Billing: Yes Source: Developed by Drs. Ricco Shea, Mira Cruz, Ezio Robledo and colleagues, with an educational piedad from [employer]. Thrive Questionnaire Date Thrive assessed: 06/23/24 I am a: Patient What is your living situation today?: I have a steady place to live Within the past 12 months, did the food you bought not last and you didn't have the money to get more?: Often true Within the past 12 months, did you worry whether your food would run out before you got money to buy more?: Often true Do you have trouble paying for medicines?: No Do you have trouble getting transportation to medical appointments?: No Do you have trouble paying your heating and electricity bill?: No Do you have trouble taking care of your child, family member or friend?: No Do you have trouble with day-to-day activities such as bathing, preparing meals, shopping, managing finances, etc.?: No Are you currently unemployed and looking for a job?: Yes Are you interested in more education?: Yes Please select the resources that you would like help with: Job search/training and Education Currently or been in a relationship where the following occur: No concerns reported and I choose not to answer THRIVE Score: 2 AUDIT C Alcohol Use Questionnaire (AUDIT-C) 1. How often do you have a drink containing alcohol?: Monthly or less 2. How many drinks containing alcohol do you have on a typical day when you are drinking?: 1 or 2 3. How often do you have six or more drinks on one occasion?: Less than monthly Total Score: 2 DANI-7 AMB Questionnaire DANI-7 Date DANI - 7 assessed: 06/07/25 Feeling nervous, anxious, or on edge: 1 = Several days Not being able to stop or control worryin = Several days Worrying too much about different things: 1 = Several days Trouble relaxin = More than half the days Being so restless that it is hard to sit still: 1 = Several days Becoming easily annoyed or irritable: 2 = More than half the days Feeling afraid as if something awful might happen: 0 = Not at all Total DANI-7 score (0-4 normal; 5-9 mild; 10-14 moderate; 15-21 severe): 8 Source: Developed by Drs. Ricco Shea, iMra Cruz, Ezio Robledo and colleagues, with an educational piedad from [employer]. Physical exam (Primary Care) Vital Signs: Last Vital Signs Temp 98.0 F 06/07/25 11:42 Pulse 84 06/07/25 11:42 Resp 16 06/07/25 11:42 BP 122/88 06/07/25 11:42 Pulse Ox 96 06/07/25 11:42 Oxygen Delivery Method Room Air 06/07/25 11:42 BMI result Body Mass Index 45.3 Tobacco/Smoking Status: Tobacco use Status Tobacco use date assessed 06/07/25 06/07/25 11:47 Patient Tobacco Use Status Never used Tobacco 06/07/25 11:47 e-Cigarette/Vaping Use Currently Using 06/07/25 11:47 PHQ-9: PHQ-9 Score PHQ-9: Total score 11 06/07/25 11:47 Depression Screening Interpretation: Positive Thrive Assessment: Date of Thrive Assessment Date Thrive assessed 06/23/24 06/07/25 11:47 Currently or been in a relationship where the following occur: No concerns reported and I choose not to answer Coding Level of Care Code Est Pt Level 3 (98242) Diagnoses GERD (gastroesophageal reflux disease) K21.9 Additional Codes PHQ-9 - 75573 - PHQ-9 Billing: Yes ([id number]) Assessment & Plan Assessment & Plan (1) GERD (gastroesophageal reflux disease): Code(s): K21.9 - Gastro-esophageal reflux disease without esophagitis Category: Medical Plan . Orders: Orders Complete Blood Count Auto Diff Today K21.9 - Gastro-esophageal reflux disease without esophagitis Comprehensive [place]. Panel Fast Today K21.9 - Gastro-esophageal reflux disease without esophagitis TSH reflex Free T4 Today K21.9 - Gastro-esophageal reflux disease without esophagitis Lipid Panel Today K21.9 - Gastro-esophageal reflux disease without esophagitis UA CC w/rflx Micro + Cult Today K21.9 - Gastro-esophageal reflux disease without esophagitis Medications: New pantoprazole 20 mg PO DAILY 30 tabs 2RF
[2025-06-07 11:42] VITALS: BP 122/88; PULSE 84; RESP 16; TEMP 36.7; O2SAT 96; BMI 45.3
--- OUTSIDE RECORDS SUMMARY | 2025-06-07 12:34 | XMS_ITS | Clinical Summary ---
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 Account Type Relation to Patient Date of Phone Billing Address Worker[employer] Comp [address] [place] [address] WORKERS COMPENSATION
== END 2025-06-07 12:22 | disposition home or self-care (01) ==
LOC: HO.HMCC 11:35
PROVIDERS: PCP Nurse Practitioner Family; Visit Provider Nurse Practitioner Family
DX: K21.9 Gastro-esophageal reflux disease without esophagitis (principal)

== ENCOUNTER → 2025-06-07 11:34 | Outpatient (BNVA) | payer MEDICARE, MEDICAID, SELFPAY | PROVIDERS: PCP Nurse Practitioner Family; Visit Provider Nurse Practitioner Family | DX: K21.9 Gastro-esophageal reflux disease without esophagitis (principal); Z13.31 Encounter for screening for depression | CPT/HCPCS: 96127; 99212 ==

== ENCOUNTER 2025-06-15 09:23 | Outpatient (REF) | payer MEDICARE, MEDICAID, SELFPAY ==
--- OUTSIDE RECORDS SUMMARY | 2025-06-15 10:06 | XMS_ITS | Clinical Summary ---
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 Account Type Relation to Patient Date of Phone Billing Address Worker[employer] [address] [place] [address] WORKERS COMPENSATION
[2025-06-15 13:21] LABS: MANUAL DIFF FLAG NO
[2025-06-15 13:34] LABS: Hematocrit 44.2 % (42.0-52.0); Hemoglobin 15.5 g/dl (14.0-18.0); Imm Gran Abs Auto 0.03 X10*3/uL (0.00-0.03); Imm Gran Pct Auto 0.6 % (0.0-0.4); Lymphocytes Absolute Auto 1.6 X10*3/uL (1.2-4.9); Mean Corpuscular HGB Conc 35.1 g/dl (31.0-36.0); Mean Corpuscular Hemoglobin 29.2 pg (27.0-33.0); Mean Corpuscular Volume 83.4 fL (80.0-98.0); NRBC Abs Auto 0.000 X10*3/uL (0.0-0.012); NRBC Pct Auto 0.0 /100WBC (0.0-0.2); Platelet Count 196 X10*3/uL (160-400); Red Blood Count 5.30 X10*6/uL (4.60-5.80); White Blood Count 4.8 X10*3/uL (4.8-10.8)
[2025-06-15 13:49] LABS: Alanine Aminotransferase 87 U/L (0-40); Albumin Level 4.5 g/dL (3.5-5.0); Alkaline Phosphatase 89 U/L (39-117); Anion Gap 12 (12-20); Aspartate Amino Transferase 54 U/L (5-37); Blood Urea Nitrogen 12 mg/dL (9-16); Calcium 9.2 mg/dL (8.4-10.2); Carbon Dioxide 22 mmol/L (22-29); Chloride 109 mmol/L (96-108); Cholesterol 194 mg/dL (<200); Estimated Glomerular Filt Rate > 60; HDL Cholesterol 34 mg/dL (>40); Potassium 3.8 mmol/L (3.3-5.1); Sodium 139 mmol/L (135-145); Total Protein 6.9 g/dL (6.5-8.0); Triglycerides 213 mg/dL (<150)
== END 2025-06-15 09:24 | disposition home or self-care (01) ==
LOC: HO.HMGCLDS 09:23
PROVIDERS: PCP Nurse Practitioner Family; Visit Provider Nurse Practitioner Family
DX: K21.9 Gastro-esophageal reflux disease without esophagitis (principal); Z13.6 Encounter for screening for cardiovascular disorders
CPT/HCPCS: 36415; 80053; 80061; 84443; 85025

== ENCOUNTER 2025-09-14 15:03 | Outpatient (AMB) | payer MEDICAID, SELFPAY ==
[2025-09-14 15:04] VITALS: BP 118/80; PULSE 78; O2SAT 97; BMI 44.6
--- NOTE | 2025-09-14 15:04 | MHC.OFFWIV ---
Intake Vital Signs 09/14/25 15:04 Height 5 ft 10 in Weight 311 lb BMI 44.6 BP 118/80 Blood Pressure Location Rt brachial Position Sitting Pulse 78 Pulse Source Pulse Oximeter Pulse Oximetry (%) 97 Oxygen Delivery Method Room Air Intake Visit Reasons: EP Left shoulder pain Intake Note: Patient presents c/o left shoulder pain radiating into back & down left arm, related to shoveling the other day. Patient Tobacco Use Status: Never used Tobacco Allergies No Known Allergies Allergy (Verified 09/14/25 15:08) Medication List - Last Reconciled 09/14/25 by Caroline Lock NP acetaminophen 1,000 mg (2 x 500 mg) PO Q6H clonidine HCl mg PO colesevelam (WelChol) 1,250 mg (2 x 625 mg) PO BID ibuprofen 800 mg PO Q8H oxcarbazepine 150 mg PO BID oxcarbazepine 300 mg PO BID risperidone 6 mg PO BID risperidone 2 mg PO BEDTIME topiramate 100 mg PO DAILY HPI HPI Comments History of Present Illness Details 30 y/o Male patient presents with c/o left shoulder pain radiating to the back and down the left arm. Onset began immediately after shoveling snow on Thursday; patient reports shoveling a total of 14 driveways. Pain has been persistent since. Reports minimal relief with Advil. Denies numbness, tingling, chest pain, SOB, neck trauma, or recent falls. No previous similar injuries. 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 Current occupational exposures/hazards: Yes Cognitive needs: No Hearing needs: No Vision needs: No Review of Systems Const All systems reviewed & are unremarkable except as noted in HPI and below Physical Exam Vital Signs: Last Vital Signs Pulse 78 09/14/25 15:04 BP 118/80 09/14/25 15:04 Pulse Ox 97 09/14/25 15:04 Oxygen Delivery Method Room Air 09/14/25 15:04 BMI result Body Mass Index 44.6 Const General: no acute distress Nutritional Appearance: obese morbidly obese Orientation/consciousness: patient oriented x3 Limitations: behavioral limitations Back/Spine/Pelvis Back: back tenderness Cervical Spine: cervical muscular tenderness and cervical spasm Thoracic/Lumbar Spine: pain with thoraco-lumbar ROM, paraspinal muscle tenderness and thoracic spinal tenderness at T1, at T2 and at T3 Neuro General: patient oriented x3, gait normal and moves all extremities Motor exam (neuro): 5/5 motor strength present throughout Extrem Left upper extremity: shoulder/upper arm Details: inspection abnormal, tenderness Location: over the deltoid bursa and abnormal ROM Details: pain with active ROM and pain with passive ROM Psych Speech and movement: Normal speech and movement present Assessment & Plan Assessment & Plan (1) Trapezius muscle strain: Code(s): S46.819A - Strain of other muscles, fascia and tendons at shoulder and upper arm level, unspecified arm, initial encounter Qualifiers: Encounter type: initial encounter Laterality: left Qualified Code(s): S46.812A - Strain of other muscles, fascia and tendons at shoulder and upper arm level, left arm, initial encounter Plan: Left Shoulder Strain ? likely musculoskeletal overuse injury secondary to repetitive heavy activity (snow shoveling). Possible Trapezius/Rhomboid Strain ? given radiation to back. Continue NSAIDs: Recommend scheduled ibuprofen 600 mg every 6 hrs with food ? 48?72 hrs, then PRN. Add acetaminophen 500?1000 mg every 6 hrs PRN (max 3,000 mg/day). Apply heat 15?20 min several times daily; may alternate with ice for acute flare-ups. Activity modification: Avoid heavy lifting, repetitive shoveling, or overhead movements for several days. Gentle shoulder ROM/stretching exercises provided. ED precautions: Chest pain, SOB, arm numbness/weakness, or severe worsening pain. Medications: New acetaminophen 1,000 mg (2 x 500 mg) PO Q6H 30 caps 0RF pain S46.812A - Strain of other muscles, fascia and tendons at shoulder and upper arm level, left arm, initial encounter ibuprofen 800 mg PO Q8H 30 tabs 0RF S46.812A - Strain of other muscles, fascia and tendons at shoulder and upper arm level, left arm, initial encounter Coding Level of Care Code Est Pt Level 4 (15922) Diagnoses Strain of left trapezius muscle, initial encounter S46.812A Encounter type: initial encounter Laterality: left Time Spent (min) 20
== END 2025-09-14 15:36 | disposition home or self-care (01) ==
PROVIDERS: PCP Nurse Practitioner Family; Visit Provider Nurse Practitioner Family
DX: S46.812A Strain of other muscles, fascia and tendons at shoulder and upper arm level, left arm, initial encounter (principal)

== ENCOUNTER → 2025-09-14 15:03 | Outpatient (BNVA) | payer MEDICAID, SELFPAY | PROVIDERS: PCP Nurse Practitioner Family; Visit Provider Nurse Practitioner Family | DX: S46.812A Strain of other muscles, fascia and tendons at shoulder and upper arm level, left arm, initial encounter (principal) | CPT/HCPCS: 99212 ==